=== PATIENT | male | born 1940 | race Caucasian/White ===

== ENCOUNTER → 2017-06-10 | Outpatient (CLI) | payer MEDICARE, OTHER ==
[~2017-06-10] MED LIST: AMLO-147 PO; CHOL400T10 PO; FERR220S15 PO; FLUO40CA PO; GEMF600T60 PO; LISI40TA9 PO
--- NOTE | 2017-06-10 16:54 | RADRPT ---
PROCEDURE: Left knee radiographs. CLINICAL INDICATION: Left knee pain. Postop. TECHNIQUE: Three views. Weight bearing. Frontal, lateral, and patellar view. COMPARISON: 07/15/2015. FINDINGS: There is no fracture or dislocation. The soft tissues are normal. There is a total left knee constrained arthroplasty which appears satisfactory. There is no lytic or blastic lesion. There is a joint effusion. IMPRESSION: 1. Joint effusion. 2. Otherwise unremarkable postoperative appearance of the left knee. RPTAT: QQ .Audi Deleon MD, MD Date Time Electronically viewed and signed by .Audi Deleon MD, MD on 06/10/2017 16:54 .R/
== END | disposition home or self-care (01) ==
LOC: HKI 14:12
PROVIDERS: ATTEND Orthopaedic Surgery
DX: M25.562 Pain in left knee (principal); M25.462 Effusion, left knee; Z96.652 Presence of left artificial knee joint
CPT/HCPCS: G0463

== ENCOUNTER 2017-06-13 08:25 | Inpatient (IN) | payer MEDICARE, OTHER ==
[2017-06-13] VITALS (22 sets, daily range): BP systolic 120–145; BP diastolic 55–65; PULSE 81–88; RESP 11–18; TEMP 98.9; Ht 167.6 cm; Wt 82.0 kg
[~2017-06-13] VITALS: Ht 167.6 cm; Wt 82.0 kg
[~2017-06-13 08:25] MED LIST changes: +ETOMIDATE 20 MG INJ ONE; +PROPOFOL 1000 MG INJ ONE
[2017-06-13] MEDS ORDERED: CEFEPIME 2GM/50 ML (PMX) 50 ML IVPB STA (08:45)
[2017-06-13] MEDS ORDERED: SODIUM CHLORIDE 0.9% 1L BAG IV* STA (08:45)
[2017-06-13] MEDS ORDERED: VANCOMYCIN 1 GM (PMX) 250 ML IVPB ONE (09:00)
[2017-06-13 09:24] LABS: ADD SCAN DIFF NO
[2017-06-13] MEDS ORDERED: morphine 4 MG/ML VIAL IV STA (09:28)
[2017-06-13] MEDS ORDERED: ONDANSETRON 4 MG INJ IV STA (09:28)
[2017-06-13 09:41] LABS: BASOPHILS % 0.1 % (0.0-2.0); EOSINOPHILS # 0.2 10^3/ul (0.0-0.5); EOSINOPHILS % 1.4 % (0.0-7.0); HEMATOCRIT 38.3 % (42.0-52.0); HEMOGLOBIN 12.5 g/dl (14.0-18.0); LYMPHOCYTES # 0.8 10^3/ul (0.8-2.9); MEAN CORPUSCULAR HEMOGLOBIN 29.6 pg (29.0-33.0); MEAN CORPUSCULAR HGB CONC 32.6 g/dl (32.0-37.0); MEAN CORPUSCULAR VOLUME 90.5 fl (82.0-101.0); MEAN PLATELET VOLUME 11.1 fl (7.4-10.4); MONOCYTE # 1.5 10^3/ul (0.3-0.9); MONOCYTES % 13.5 % (0.0-11.0); NEUTROPHIL # 8.6 10^3/ul (1.6-7.5); NEUTROPHILS % 77.2 % (39.0-77.0); PLATELET COUNT 280 10^3/UL (140-415); RED BLOOD COUNT 4.23 10^6/ul (4.70-6.10); RED CELL DISTRIBUTION WIDTH 13.2 % (11.5-14.5); WHITE BLOOD COUNT 11.1 10^3/ul (4.8-10.8)
[2017-06-13 09:47] LABS: INR 1.03; PARTIAL THROMBOPLASTIN TIME 23.9 Sec (25.0-35.0); PROTIME 13.5 Sec (12.2-14.2); PT RATIO 1.1
[2017-06-13 09:52] LABS: ALBUMIN 4.7 g/dl (3.3-4.9); ALBUMIN/GLOBULIN RATIO 1.42; BILIRUBIN,INDIRECT 0.5 mg/dl (0-1.1); BILIRUBIN,TOTAL 0.5 mg/dl (0.2-1.3); CALCIUM 9.7 mg/dl (8.4-10.2); CREATININE 1.54 mg/dl (0.61-1.24)
--- NOTE | 2017-06-13 09:55 | HP ---
Date/Time of Note Date/Time of Note DATE: 06/13/17 TIME: 09:44 Assessment/Plan VTE Prophylaxis VTE Prophylaxis Intervention: SCD's VTE Contraindication Reason: sx procedure on lower extremity VTE Confirmed-Overlap Tx Rcvd Reason for no Overlap Therapy: Contraindicated VTE Overlap Tx Contraindicated: sx procedure on lower extremity Assessment/Plan Assessment/Plan The patient has an infected left total knee arthroplasty. The symptoms have been going on for the last 3-4 days. He had previously told me in the clinic that he was having some pain for last few months but his symptoms of acute pain and swelling have started only 3-4 days ago. The organism is a Staphylococcus aureus but the sensitivities still pending. I am putting him on the operative schedule for this afternoon for surgical intervention. I am hopeful to have the sensitivities of the organism prior to that. If the organism is a sensitive Staphylococcus aureus then I think it is reasonable to attempt a irrigation and debridement with polyethylene liner exchange and retention of the components and placement of antibiotic beads. However, if the organism is a methicillin-resistant staph aureus, then he will need removal of the components and placement of antibiotic impregnated cement spacer with interval IV antibiotics and a second stage reimplantation at a later date. I had a lengthy discussion with the patient about the 2 surgical options. He obviously would like to avoid taking everything out especially given that there are cemented stems up the femur down the tibia which would require an extensive resection and may lead to significant bone loss and if he has to have a antibiotic spacer will mean he is touchdown weightbearing and limited in his ambulatory function and unable to take care of his was sick. For now we will make him n.p.o. He will be hydrated with intravenous fluids and was started on vancomycin and cefepime. He will be given adequate pain medication. I have asked Dr. Stein off of medicine to see the patient for preoperative clearance. We will also have Dr. Balwinder eknny of infectious disease see the patient for ID consultation. We will check preoperative labs including a CBC, can panel, PT PTT, ESR, CRP, chest x-ray, EKG, and urine analysis. Once he is cleared medically we will plan to proceed with surgery later today. I have explained the risks of both procedures to the patient. Explained the risks to include but not be limited to: Bleeding and possible need for blood transfusion, infection (residual/recurrent and possible inability to eradicate the infection and need for above-knee amputation), pain, stiffness, neurovascular injury with possible numbness, weakness, and/or paralysis anywhere from the knee down to the toes, fracture, instability, dislocation, wear and/or loosening of the prosthesis and need for a revision at a later date , wound healing problems, blood clots, pulmonary embolism, and anesthetic complications such as heart attack, stroke, GI bleed, pneumonia, and/or . Ample time was allowed for the patient to ask questions all of which were addressed and answered. He understands and wishes to proceed. Informed consent was given and we will plan to surgery later today. HPI/ROS Admit Date/Time Admit Date/Time Hx of Present Illness The patient is a 77-year-old gentleman well-known to me who underwent a left total knee arthroplasty about 3 years ago. He has done quite well since the surgery. However starting earlier this week he noted increasing pain and swelling in the knee. He came to my office 3 days ago. I aspirated the knee and obtained approximately 90 cc of cloudy fluid. We sent this off to the laboratory. This has come back consistent with an infectious etiology. I called him last night and suggested he come to the emergency room last night but he had to wait till this morning because of logistics of transportation. He is here today complaining of persistent pain in the knee. He had a low- grade temperature at home but did not take his temperature. He denies any recent dental work. In the past he has had dental work and has taken prophylactic antibiotics. He has had no tooth abscesses or infections elsewhere. He denies any hip or groin pain or pain in other joints. PMH/Family/Social Past Medical History 1. History of atrial fibrillation 2. Elevated cholesterol 3. Hypertension Past Surgical History 1. Left total knee replacement Family History Significant Family History: other Social History Alcohol Use: none Smoking Status: Former smoker Exam/Review of Systems Vital Signs Vitals Vital Signs Date Time Temp Pulse Resp B/P Pulse Ox O2 Delivery O2 Flow Rate FiO2 06/13/17 08:27 100.4 75 20 139/63 98 Exam Exam The patient is lying on the hospital very comfortable. His left knee has a well -healed midline scar. There is a moderate effusion. The knee is warm to the touch. There is pain with attempted passive range of motion. There is no varus or valgus instability. Both hips are supple no pain passive range of motion. The right knee has no effusion warmth or erythema and has no pain on passive range of motion. Motor strength is 5 out of 5 in the bilateral quadriceps, tibialis anterior,, gastrocsoleus, and peroneals. Sensation is intact to light touch of the bilateral lower extremities. He has palpable dorsalis pedis and posterior tibial pulses with capillary refill less than 2 seconds in all 5 digits. There is no distal edema. X-rays done the other day in my office so that the left total knee arthroplasty is well aligned and well fixed. The stems are cemented in the femur and tibia with no obvious loosening. There are no fractures or bony lesions or areas of subluxations. Laboratories: Blood work drawn on 06/10/17reveals a white blood cell count of 15.0, ESR 6, CRP 10.03 The fluid aspirated from his left knee on 06/10/2017 reveals 36,000 white blood cells with 82% neutrophils. No crystals were seen. The Gram stain shows many white blood cells but no organisms seen. The culture is showing scant growth of Staphylococcus aureus. The sensitivities are still pending. Medications Medications Current Medications Vancomycin HCl (Vancocin) 250 ml @ 125 mls/hr ONCE ONCE IVPB ; Start 06/13/17 at 09:00; Stop 06/13/17 at 10:59 MIR MCNAMARA MD Jun 13, 2017 09:55
[2017-06-13] MEDS ORDERED: ONDANSETRON 4 MG INJ IV PRN ×3 (10:00→20:30)
[2017-06-13] MEDS ORDERED: ACETAMINOPHEN 325 MG TAB PO PRN ×2 (10:00→12:00)
[2017-06-13 10:01] LABS: TROPONIN-I 0.017 ng/ml (0.00-0.12)
[2017-06-13 10:05] LABS: C-REACTIVE PROTEIN 25.1 mg/dl (0.0-0.9)
--- NOTE | 2017-06-13 10:06 | ERA ---
ER Documentation Chief Complaint Date/Time DATE: 06/13/17 TIME: 10:05 Chief Complaint Complains of left knee pain S/P knee infection HPI Patient is a 77-year-old male with hypertension who presents with a left knee infection. He said that on Saturday night he started with left knee swelling and he saw Dr. Dewey on Saturday. He can draw fluid and called the patient today saying that it was an infection and that he would need to go to the hospital for admission and surgery. He does have a fever in the emergency department. The patient had a left knee replacement done by Dr. Dewey 3 years ago. ROS All systems reviewed and are negative except as per history of present illness. Medications Home Meds Reported Medications Ferrous Sulfate (Ferrous Sulfate) 220 Mg/5 Ml Solution, 220 MG PO DAILY, ML 07/27/14 Cholecalciferol* (Vitamin D*) 400 Unit Tablet, 1000 UNIT PO DAILY, TAB 07/27/14 Gemfibrozil* (Gemfibrozil*) 600 Mg Tablet, 600 MG PO BID, TAB 07/26/14 Fluoxetine Hcl* (Fluoxetine Hcl*) 40 Mg Capsule, 30 MG PO DAILY, CAP 07/26/14 Amlodipine Besylate* (Amlodipine Besylate*) 10 Mg Tablet, 7.5 MG PO BID WITH MEALS, TAB 07/26/14 Lisinopril* (Lisinopril*) 40 Mg Tablet, 40 MG PO DAILY, TAB 07/26/14 Allergies Allergies: Coded Allergies: gabapentin (Verified Allergy, Unknown, swelling, 06/13/17) metoprolol (Verified Allergy, Unknown, lethargy, 06/13/17) warfarin (Verified Allergy, Unknown, getting too weak, 06/13/17) PMhx/Soc History of Surgery: Yes ( LEFT KNEE REPLACEMENT 2013) Anesthesia Reaction: No Hx Neurological Disorder: No Hx Respiratory Disorders: No Hx Cardiac Disorders: Yes (HTN; AFIB) Hx Psychiatric Problems: No Hx Miscellaneous Medical Probl: Yes Hx Alcohol Use: Yes Hx Substance Use: No Hx Tobacco Use: No Smoking Status: Former smoker FmHx Family History: No diabetes Physical Exam Vitals Vital Signs Date Time Temp Pulse Resp B/P Pulse Ox O2 Delivery O2 Flow Rate FiO2 06/13/17 10:06 99.1 75 18 156/67 96 Room Air 06/13/17 08:27 100.4 75 20 139/63 98 Physical Exam Const: No acute distress Head: Atraumatic Eyes: Normal Conjunctiva ENT: Normal External Ears, Nose and Mouth. Neck: Full range of motion..~ No meningismus. Resp: Clear to auscultation bilaterally Cardio: Regular rate and rhythm, no murmurs Abd: Soft, non tender, non distended. Normal bowel sounds Skin: No petechiae or rashes Back: No midline or flank tenderness Ext: Significant left-sided knee swelling with effusion, warm to touch Neur: Awake and alert Psych: Normal Mood and Affect Result Diagram: 06/13/17 0900 06/13/17 0900 Results 24 hrs Laboratory Tests Test 06/13/17 09:00 White Blood Count 11.110^3/ul Red Blood Count 4.2310^6/ul Hemoglobin 12.5g/dl Hematocrit 38.3% Mean Corpuscular Volume 90.5fl Mean Corpuscular Hemoglobin 29.6pg Mean Corpuscular Hemoglobin Concent 32.6g/dl Red Cell Distribution Width 13.2% Platelet Count 90905^3/UL Mean Platelet Volume 11.1fl Neutrophils % 77.2% Lymphocytes % 7.0% Monocytes % 13.5% Eosinophils % 1.4% Basophils % 0.1% Nucleated Red Blood Cells % 0.0/100WBC Neutrophils # 8.610^3/ul Lymphocytes # 0.810^3/ul Monocytes # 1.510^3/ul Eosinophils # 0.210^3/ul Basophils # 0.010^3/ul Nucleated Red Blood Cells # 0.010^3/ul Prothrombin Time 13.5Sec Prothrombin Time Ratio 1.1 INR International Normalized Ratio 1.03 Activated Partial Thromboplast Time 23.9Sec Sodium Level 131mmol/L Potassium Level 4.0mmol/L Chloride Level 98mmol/L Carbon Dioxide Level 23mmol/L Anion Gap 14 Blood Urea Nitrogen 21mg/dl Creatinine 1.54mg/dl Glucose Level 104mg/dl Lactic Acid Level 0.9mmol/L Calcium Level 9.7mg/dl Total Bilirubin 0.5mg/dl Direct Bilirubin 0.00mg/dl Indirect Bilirubin 0.5mg/dl Aspartate Amino Transf (AST/SGOT) 43IU/L Alanine Aminotransferase (ALT/SGPT) 48IU/L Alkaline Phosphatase 69IU/L Troponin I 0.017ng/ml C-Reactive Protein 25.1mg/dl Total Protein 8.0g/dl Albumin 4.7g/dl Globulin 3.30g/dl Albumin/Globulin Ratio 1.42 Current Medications Medications (Trade) Dose Ordered Sig/Dione Route PRN Reason Start Time Stop Time Status Last Admin Dose Admin Sodium Chloride 2540 ml 2,540 ml BOLUS OVER 2 HOURS STAT IV* 06/13/17 08:45 06/13/17 08:47 DC 06/13/17 09:50 Cefepime HCl 50 ml @ 100 mls/hr ONCE STAT IVPB 06/13/17 08:45 06/13/17 09:14 DC 06/13/17 09:51 Vancomycin HCl (Vancocin) 250 ml @ 125 mls/hr ONCE ONCE IVPB 06/13/17 09:00 06/13/17 10:59 Morphine Sulfate (morphine) 4 mg ONCE STAT IV 06/13/17 09:28 06/13/17 09:30 DC 06/13/17 09:44 Ondansetron HCl (Zofran Inj) 4 mg ONCE STAT IV 06/13/17 09:28 06/13/17 09:30 DC 06/13/17 09:43 Ondansetron HCl (Zofran Inj) 4 mg BRIDGE ORDER PRN IV NAUSEA AND/OR VOMITING 06/13/17 10:00 06/14/17 09:59 Acetaminophen (Tylenol Tab) 650 mg ER BRIDGE PRN PO MILD PAIN/FEVER 06/13/17 10:00 06/14/17 09:59 Procedures/MDM Chest x-ray pending at this time. EKG read by me: Rate/Rhythm: Regular rate and rhythm at a normal rate Intervals: Normal Impression: No evidence of ischemia or arrhythmia Patient is a 77-year-old male presents with acute left-sided joint infection. The patient has a septic joint in the left knee. The patient will need to go to the operating room for washout and revision surgery. Dr. Dewey will be taken the patient to the operating room today. The patient was given broad- spectrum antibiotics with vancomycin and cefepime. Laboratory studies show an elevated white blood cell count. At this point I doubt sepsis. The patient will be admitted to the care of Dr. Flores who is seen him in the past in 2013. The patient will be admitted to a medical surgical bed. Departure Diagnosis: Primary Impression: Septic joint Qualified Code: M00.9 - Pyogenic arthritis of left knee joint, due to unspecified organism Additional Impression: Knee pain Qualified Code: M25.562 - Acute pain of left knee Condition: KERA Dennison MD Jun 13, 2017 10:06
[2017-06-13] MEDS ORDERED: SAW450CA2 PO (10:36)
[2017-06-13] MEDS ORDERED: FENO145T19 PO (10:36)
[2017-06-13] MEDS ORDERED: CHOL100062 PO (10:37)
[2017-06-13] MEDS ORDERED: TEST1.25 TD (10:38)
[2017-06-13] MEDS ORDERED: HYDROmorphONE 1 MG/ML SYG IV STA (11:34)
--- NOTE | 2017-06-13 11:34 | RADRPT ---
PROCEDURE: XR Chest. CLINICAL INDICATION: Possible sepsis TECHNIQUE: An AP view of the chest was obtained. COMPARISON: Chest x-ray dated FINDINGS: There is prominence of the interstitial markings. No pleural effusion or pneumothorax is seen. Th e cardiomediastinal silhouette is mildly enlarged . Calcifications are seen within the aortic arch. The osseous structures demonstrate senescent changes. IMPRESSION: 1. Mild prominence of the interstitial markings, may reflect mild underlying interstitial edema or chronic lung changes. Findings are increased when compared to the prior examination. 2. Mild cardiomegaly and aortic atherosclerosis. RPTAT: HH .Kandi Mayberry MD, MD Date Time Electronically viewed and signed by .Kandi Mayberry MD, on 06/13/2017 11:33 .G/
[2017-06-13] MEDS: traMADol 50 MG TAB PO SCH ×3 (12:00→23:39)
[2017-06-13] MEDS ORDERED: ONDANSETRON 4 MG TAB PO PRN (12:00)
[2017-06-13] MEDS ORDERED: DOCUSATE SODIUM 100 MG CAP PO PRN (12:00)
[2017-06-13] MEDS ORDERED: NACL 0.9% 3 ML SYG IV SCH ×2 (12:00→20:30)
[2017-06-13] MEDS ORDERED: HYDROCODONE/APAP (5/325) TAB PO PRN (12:00)
[2017-06-13] MEDS ORDERED: DEXTROSE 5%-0.9% NACL 1,000 ML IV SCH (12:00)
[2017-06-13] MEDS ORDERED: morphine 2 MG INJ IV PRN (12:00)
[2017-06-13] MEDS ORDERED: ZOLPIDEM 5 MG TAB PO PRN (12:00)
--- NOTE | 2017-06-13 12:10 | HP ---
Date/Time of Note Date/Time of Note DATE: 06/13/17 TIME: 12:03 Assessment/Plan VTE Prophylaxis VTE Prophylaxis Intervention: SCD's Assessment/Plan Assessment/Plan 1. Septic left knee, surgery is planned today, abx started, id to see 2. Mild renal insuff, baseline Scr 1.22, rajesh stopped, iv started, pamela ordered 3. HBP, meds continued 4. Elev tri and chol, meds resumed 5. NIVVS ordered HPI/ROS Admit Date/Time Admit Date/Time 7 Hx of Present Illness Admitted with 5 d hx of swelling of left knee having had prior knee replacement 07/15 with sense of low grade temp. No recent dental work and no trauma. 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 alcohol Alcohol Use: none Smoking Status: Former smoker Exam/Review of Systems Vital Signs Vitals Vital Signs Date Time Temp Pulse Resp B/P Pulse Ox O2 Delivery O2 Flow Rate FiO2 06/13/17 11:55 98.4 75 18 140/64 97 Room Air Exam Neck: No jvd Respiratory: clear to auscultation Cardiovascular: regular rate and rhythm Gastrointestinal: soft Musculoskeletal: joint tenderness (left knee is swollen and sl tender) Extremities: No edema (and no calf tend) Labs Result Diagram: 06/13/17 0900 06/13/17 0900 Medications Medications Current Medications Cholecalciferol (Vitamin D) 2,000 unit DAILY PO ; Start 06/14/17 at 09:00; Status UNV Fenofibrate (Tricor) 145 mg DAILY PO ; Start 06/14/17 at 09:00; Status UNV Fluoxetine HCl (Prozac) 30 mg DAILY PO ; Start 06/14/17 at 09:00; Status UNV KADEN ORDOÑEZ MD Jun 13, 2017 12:10
--- NOTE | 2017-06-13 13:19 | RADRPT ---
PROCEDURE: US venous lower extremities bilaterally. CLINICAL INDICATION: Lower extremity pain. TECHNIQUE: Multiple longitudinal and transverse images of the bilateral lower extremity veins were obtained with vargas scale and color Doppler imaging. 2D grayscale imaging with compression, color D oppler flow, and augmentation was performed. The calf veins were interrogated as well. COMPARISON: None available. FINDINGS: The common femoral, superficial femoral, and popliteal veins are compressible bilaterally. There is normal color Doppler flow within the vessels. Normal waveforms are visualized and there is normal response to augmentation. The calf veins are visualized and are equally unremarkable. IMPRESSION: 1. No evidence of deep vein thrombosis in the lower extremities bilaterally. RPTAT: GG .Raghavendra Arevalo MD, MD Date Time Electronically viewed and signed by .Raghavendra Arevalo MD, MD on 06/13/2017 13:18 .P/
[2017-06-13] MEDS ORDERED: BACITRACIN 50000 UNITS INJ ONE (14:40)
[2017-06-13] MEDS ORDERED: SODIUM HYPOCHLORITE 0.125% 473 ML BTL IRR ONE ×2 (15:00→15:30)
[2017-06-13] MEDS ORDERED: VANCOMYCIN 1 GM INJ ONE ×5 (15:11→19:14)
[2017-06-13] MEDS ORDERED: POLYMYXIN B 500000 UNIT INJ ONE (15:11)
[2017-06-13] MEDS ORDERED: TOBRAMYCIN 1.2 GM POWDER ONE ×2 (15:11→16:10)
[2017-06-13] MEDS ORDERED: MINERAL OIL LIGHT 10 ML VIAL ONE ×2 (15:12→19:10)
[2017-06-13] MEDS ORDERED: METHYLENE BLUE 1% 10 ML INJ ONE ×2 (15:13→19:02)
[2017-06-13] MEDS ORDERED: EXPAREL NOTE (BUPIVICAINE LIPOSOMAL) XX SCH (15:30)
[2017-06-13] MEDS ORDERED: CELECOXIB 400 MG PO X1 DOSE PO ONE (15:30)
[2017-06-13] MEDS ORDERED: ONDANSETRON 4 MG IV X 1 DOSE IV ONE (15:30)
[2017-06-13] MEDS ORDERED: VANCOMYCIN 1 GM/NS 250 ML X1 BEFORE INCISION IVPB ONE (15:30)
[2017-06-13] MEDS ORDERED: LACTATED RINGER'S 1,000 ML IV SCH (15:30)
[2017-06-13] MEDS ORDERED: traMADOL 50 MG TAB X 1 DOSE PO ONE (15:30)
[2017-06-13] MEDS ORDERED: TRANEXAMIC ACID 820 MG in SOD CHLORIDE 0.9% 100 ML IVPB ONE ×7 (15:30→23:30)
[2017-06-13] MEDS ORDERED: BUPIVACAINE LIPOSOME/PF 266 MG/20 ML VIAL INFIL ONE (15:30)
[2017-06-13] MEDS ORDERED: TRANEXAMIC ACID 820 MG in SOD CHLORIDE 0.9% 91.8 ML IV ONE (15:30)
[2017-06-13] MEDS ORDERED: PAIN COCKTAIL - VANCOMYCIN IRR ONE ×7 (15:30)
[2017-06-13] MEDS ORDERED: oxyCODONE (CR) 10 MG TAB [oxyCONTIN] X1 DOSE PO ONE (15:30)
[2017-06-13] MEDS ORDERED: CEFAZOLIN 2 GM/50 ML (PMX) 50 ML IVPB ONE (15:30)
[2017-06-13] MEDS ORDERED: NEOSTIGMINE 3 MG/3 ML SYRINGE ONE (15:39)
[2017-06-13] MEDS ORDERED: FENTAnyl 50 MCG/ML VIAL ONE ×2 (15:39→18:27)
[2017-06-13] MEDS ORDERED: CEFAZOLIN 1 GM INJ ONE (15:39)
[2017-06-13] MEDS ORDERED: PROPOFOL 20 ML ONE (15:39)
[2017-06-13] MEDS ORDERED: GLYCOPYRROLATE 0.4 MG INJ ONE (15:39)
[2017-06-13] MEDS ORDERED: ONDANSETRON 4 MG INJ ONE (15:39)
[2017-06-13] MEDS ORDERED: DEXAMETHASONE 4 MG/ML 1 ML INJ ONE (15:39)
[2017-06-13] MEDS ORDERED: ROCURONIUM 50 MG INJ ONE (15:39)
[2017-06-13] MEDS ORDERED: MIDAZOLAM 1 MG/ML 2 ML INJ ONE (15:39)
[2017-06-13] MEDS ORDERED: MEPERIDINE 25 MG INJ IV PRN (17:00)
[2017-06-13] MEDS ORDERED: DIPHENHYDRAMINE 50 MG INJ IV PRN (17:00)
[2017-06-13] MEDS ORDERED: FENTAnyl 50 MCG/ML VIAL IV PRN ×3 (17:00)
[2017-06-13] MEDS ORDERED: MIDAZOLAM 1 MG/ML 2 ML INJ IV PRN (17:00)
[2017-06-13] MEDS ORDERED: hydrALAzine 20 MG INJ IV PRN (17:00)
[2017-06-13] MEDS ORDERED: HYDROmorphONE (0.2 MG/ML) 10ML SYG IV PRN ×3 (17:00)
[2017-06-13] MEDS ORDERED: OXYCODONE/ACETAMINOPHEN (5/325) TAB PO PRN ×2 (17:00)
[2017-06-13] MEDS ORDERED: TRIMETHOBENZAMIDE 100 MG/ML VIAL IM PRN (17:00)
[2017-06-13] MEDS ORDERED: EPHEDrine SULFATE 50 MG/5 ML SYG IV PRN (17:00)
[2017-06-13] MEDS ORDERED: VANCOMYCIN 1 GM INJ IRR ONE (19:39)
[2017-06-13] MEDS ORDERED: TOBRAMYCIN 1.2 GM POWDER ZFS ONE (19:41)
[2017-06-13] MEDS ORDERED: FUROSEMIDE 20 MG INJ ONE (19:42)
[2017-06-13] MEDS: LACTATED RINGER'S 1,000 ML IV SCH ×2 (20:30→22:31)
[2017-06-13] MEDS ORDERED: NA PHOSPHATE/BIPHOS 133 ML ENEMA PR PRN (20:30)
[2017-06-13] MEDS ORDERED: DIPHENHYDRAMINE 25 MG CAP PO PRN (20:30)
[2017-06-13] MEDS ORDERED: HYDROCODONE/APAP (7.5/325) TAB PO PRN (20:30)
[2017-06-13] MEDS ORDERED: MAGNESIUM HYDROXIDE 30ML CUP PO PRN (20:30)
[2017-06-13] MEDS ORDERED: BISACODYL 10 MG SUPP PR PRN (20:30)
[2017-06-13] MEDS ORDERED: HYDROmorphONE 1 MG/ML SYG IV PRN (20:30)
[2017-06-13] MEDS ORDERED: ASPIRIN (EC) 325 MG TAB PO ONE ×2 (20:30→21:00)
--- NOTE | 2017-06-13 20:40 | PN ---
Date/Time of Note Date/Time of Note DATE: 06/13/17 TIME: 20:36 Assessment/Plan Assessment/Plan Assessment/Plan Stable in PACU, s/p I&D left knee, removal of infected TKA, implantation of abx spacer -continue Vancomycin. Dr. Moon to consult and see patient tomorrow -pain meds as needed -ASA/SCDs -OOB with PT - TDWB -check AM labs -monitor drain -d/c moore in AM XR of the left knee is pending at this time Subjective 24 Hr Interval Summary Stable in PACU. Denies pain. Moving all extremities. Exam/Review of Systems Vital Signs Vitals Vital Signs Date Time Temp Pulse Resp B/P Pulse Ox O2 Delivery O2 Flow Rate FiO2 06/13/17 14:50 98.9 76 18 141/67 95 Room Air Exam Free Text/Dictation Hemovac: minimal Dressing dry Incision clean, dry, and intact without redness or drainage Thigh soft 5/5 Quadriceps, Tibialis Anterior, EHL, Gastroc, Soleus, Peroneals Normal sensation Palpable DT/PT, CR <2 sec No distal edema Results Result Diagram: 06/13/17 0900 06/13/17 09 JOSE D SMALL PA-C Jun 13, 2017 20:40
--- NOTE | 2017-06-13 20:45 | OPR ---
Date/Time of Note Date/Time of Note DATE: 06/13/17 TIME: 20:33 Operative Report Procedure Description DATE: 06/13/2017 PREOPERATIVE DIAGNOSIS: Infected left total knee arthroplasty POSTOPERATIVE DIAGNOSIS: Infected left total knee arthroplasty OPERATION PERFORMED: I&D of left knee, removal of infected left knee replacement , placement of antibiotic cement spacer SURGEON: Mir Mcnamara MD PREPARATION PLANT REPAIRER: Ihsan Ley PA-C COMPONENTS USED: DePuy size 4 PFC femur with a 5 neutral bolt and a 90 mm stem , 17.5 mm all polyethylene tibia ANESTHESIA: Spinal plus general endotracheal intubation, plus femoral nerve catheter. ANESTHESIOLOGIST: Mp Campos M.D. TOURNIQUET TIME: 120 minutes. ESTIMATED BLOOD LOSS: 300 cc INTRAVENOUS FLUIDS: 4500 cc crystalloid SPECIMENS: Aerobic and anaerobic cultures of synovial fluid and synovial tissue for culture DRAINS: Hemovac x 2 COMPLICATIONS: None. DISPOSITION: The patient tolerated the procedure well and was taken to the recovery room in stable condition. INDICATIONS: The patient is a 77-year-old gentleman who underwent a left total knee arthroplasty 3 years ago and has done quite well. He came in to the office a few days ago with acute onset of pain and swelling in the left knee. I aspirated the knee and this showed 36,000 white blood cells with growth of Staphylococcus aureus. I felt the patient would benefit from removal of the implant and placement of antibiotic impregnated cement spacer with interval IV antibiotics and then have him come back at a later date for reimplantation for second stage procedure. The risks, benefits, and alternatives of the procedure were explained in detail to the patient. I explained the risks of the surgery to include but not be limited to, bleeding and possible need for blood transfusion; infection ( possible inability to eradicate the infection and need for future above-knee amputation); pain; stiffness; neurovascular injury with possible numbness, weakness, and/or paralysis anywhere from the knee down to the toes; fracture; instability; dislocation; wear and/or loosening of the prosthesis and possible need for future revision; blood clots; pulmonary embolism; and anesthetic complications such as heart attack, stroke, GI bleed, pneumonia, and/or . Ample time was allowed for the patient to ask questions, all of which were addressed and answered. The patient understood the risks involved and wished to proceed. Informed consent was signed prior to the procedure. PROCEDURE: The patient's left knee was initialed with a marking pen in the preoperative area to identify the correct operative site. The patient was brought to the operating room and transferred from the [facility] to the operating table where a spinal anesthetic was administered. The patient was then anesthetized and intubated. A Sadler catheter was placed. A timeout was performed to confirm that the left leg was the correct operative site. The patient had already been given vancomycin and cefepime earlier this morning in the emergency room. A tourniquet was placed on the operative proximal thigh. The operative knee and lower extremity were prepped and draped in the usual sterile fashion. The operative lower extremity was elevated and exsanguinated with an Esmarch tourniquet. The proximal thigh tourniquet was inflated to 300 mmHg. The knee was flexed. The previous midline incision was incised. This was carried down through subcutaneous tissue and fat with sharp dissection. Limited medial and lateral flaps were raised. The previous medial parapatellar arthrotomy was incised. This was carried down subcutaneous tissue and fat with sharp dissection. There was quite a bit of purulent synovial fluid encountered which was swabbed for aerobic and anaerobic culture 2. A synovectomy was performed. The synovial tissue was sent for culture as well. At this point the tibia was subluxed anteriorly and the polyethylene liner removed. The Biomet Ultra-Drive was used to disrupt the cement bone interface on the femur. Osteotomes were then used to free up any remaining cement bone interface and the femur was able to be impacted out of the femur with the stem coming out with no cement on it. The cement in the femoral canal was removed with a combination of osteotomes and the Biomet Ultra-Drive. Attention was then turned towards the tibia which was removed in a similar fashion using the Biomet Ultra-Drive and then osteotomes. The tibial component was impacted up out of the tibia. There was a small avulsion of the medial tibia but the majority of the tibia was intact. Remove the remaining cement with a combination of osteotomes and the Biomet Ultra-Drive. The patellar component was removed with the Biomet Ultra-Drive as well. At this point the knee was irrigated with 3 L of antibiotic saline, a one-to- one mixture of Betadine and saline, quarter strength Dakin's solution, and then 3 L of antibiotic saline. Drapes were replaced and gloves were changed. At this point I trialed and felt that the patient would benefit from a 17.5 thickness polyethylene liner and size 4 PFC femur. I wanted to use a mobile antibiotic spacer to use a stem on the femur to bypass the defect that was there from the previous surgery. At this point antibiotic cement was mixed with each bag of cement containing 3 g of vancomycin and 1.2 g of tobramycin with methylene blue mixed in. A Steinmann pin was placed through the all polyethylene tibia and coated with cement and this was cemented into place. The femoral component was then cemented into place as well the knee was held in full extension all excess cement was removed with curettes. This was held in place until the cement was completely hardened. C-arm imaging showed the spacer to be well aligned on AP and lateral views. The knee came to full extension as evidenced by the fact that with the foot on my abdomen and axial loading there was no tendency for the knee to flex. The knee was able to flex to 120 with no varus or valgus instability. The patella tracked well with no tilt or subluxation. The tourniquet was let down there was good hemostasis. The knee was irrigated with antibiotic saline. Stimulan beads were mixed with vancomycin and tobramycin placed in the knee joint. A Hemovac drain was placed in the deep portion of the knee and brought out the anterolateral thigh. The arthrotomy was then closed with a running #2 Stratafix suture. The subcutaneous layer was closed over a second drain with a running 2-0 Stratafix suture. The subcutaneous layer was then closed with 3-0 Vicryl and the skin closed with sebastian. The drains were secured with 3-0 nylon's. Sponge and needle counts were correct. Incision was covered with a silver Mepilex dressing and wrapped with sterile cast padding and a bias dressing. The patient was awakened and extubated and taken to the recovery room in stable condition MIR MCNAMARA MD Jun 13, 2017 20:44
[2017-06-13 20:50] LABS: HEMOGLOBIN 9.7 g/dl (14.0-18.0)
[2017-06-13] MEDS ORDERED: DOCUSATE SODIUM 100 MG CAP PO ONE (21:24)
[2017-06-13] MEDS ORDERED: VANCOMYCIN 1 GM (PMX) 250 ML ONE (21:24)
[2017-06-13] MEDS: VANCOMYCIN 1 GM (PMX) 250 ML IVPB SCH (21:27)
[2017-06-13] MEDS: DOCUSATE SODIUM 100 MG CAP PO SCH (21:28)
--- NOTE | 2017-06-13 21:48 | RADRPT ---
PROCEDURE: XR Knee. CLINICAL INDICATION: Postoperative evaluation TECHNIQUE: AP and cross-table lateral views of the left knee were obtained. COMPARISON: 06/10/2017 FINDINGS: Previously demonstrated metallic prosthetic component of the proximal tibia has been removed and rep laced with a solitary long screw that is in proper position the distal tip within the proximal tibia l diaphysis, the proximal tip projecting into the knee joint. The distal femoral metallic prostheti c component is unchanged. There are multiple new of radiopaque punctate densities about the distal femur and proximal tibia presumably antibiotic beads. Midline skin sebastian, drainage catheter and s ubcutaneous gas are consistent with recent postoperative changes. No joint effusion is seen and the soft tissues are unremarkable. RPTAT:HJJR IMPRESSION: 1. Interval revision of the tibial component for the prosthesis of the left knee with removal of the previously seen tibial hardware and placement of a solitary screw from the left knee joint into the proximal tibial diaphysis. 2. Placement of multiple radiopaque beads presumably antibiotic laden. 3. Distal femoral metallic prosthetic component of the arthroplasty is similar to the preoperative exam and in satisfactory position. 4. Postoperative gas, skin sebastian and drainage catheter consistent with recent surgery. Physician Soha Date Time Electronically viewed and signed by Physician Soha on 06/13/2017 21:47 /
--- NOTE | 2017-06-13 21:53 | RADRPT ---
PROCEDURE: Intraoperative imaging of the left knee with fluoroscopy. CLINICAL INDICATION: Left knee pain. Intraoperative. TECHNIQUE: 20 images of the left knee were obtained in the operating room with an image intensifie r. No radiologist was in attendance. Fluoroscopy time is 0.5 minutes. COMPARISON: Left knee radiographs dated 06/10/2017. FINDINGS: Images demonstrate surgical instruments overlying the left knee. IMPRESSION: 1. Intraoperative imaging of the left knee. RPTAT: QQ .Audi Deleon MD, MD Date Time Electronically viewed and signed by .Audi Deleon MD, MD on 06/13/2017 21:53 .R/
[2017-06-13 23:28] LABS: CALCIUM 7.1 mg/dl (8.4-10.2); CREATININE 1.26 mg/dl (0.61-1.24); POTASSIUM 4.2 mmol/L (3.5-5.1)
[2017-06-13] MEDS: PREGABALIN 50 MG CAP PO SCH (23:39)
[2017-06-14 00:01] VITALS: BP 129/60; PULSE 82; RESP 17
[2017-06-14 01:00] VITALS: BP 133/61; PULSE 85; RESP 17
[2017-06-14] MEDS ORDERED: TRANEXAMIC ACID 820 MG in SOD CHLORIDE 0.9% 100 ML IVPB ONE (02:30)
[2017-06-14 05:00] VITALS: BP 126/60; PULSE 76; RESP 17
[2017-06-14 05:36] LABS: ADD SCAN DIFF NO
[2017-06-14 05:46] LABS: ABNORMAL IP MESSAGE 1; BASOPHILS % 0.1 % (0.0-2.0); HEMATOCRIT 26.7 % (42.0-52.0); HEMOGLOBIN 8.8 g/dl (14.0-18.0); LYMPHOCYTES # 0.3 10^3/ul (0.8-2.9); LYMPHOCYTES % 3.4 % (15.0-51.0); MEAN CORPUSCULAR HEMOGLOBIN 30.8 pg (29.0-33.0); MEAN CORPUSCULAR VOLUME 93.4 fl (82.0-101.0); MEAN PLATELET VOLUME 10.7 fl (7.4-10.4); MONOCYTE # 0.8 10^3/ul (0.3-0.9); MONOCYTES % 7.5 % (0.0-11.0); NEUTROPHIL # 8.9 10^3/ul (1.6-7.5); PLATELET COUNT 218 10^3/UL (140-415); RED BLOOD COUNT 2.86 10^6/ul (4.70-6.10); RED CELL DISTRIBUTION WIDTH 13.1 % (11.5-14.5); WHITE BLOOD COUNT 10.1 10^3/ul (4.8-10.8)
[2017-06-14 06:11] LABS: CALCIUM 7.4 mg/dl (8.4-10.2); CREATININE 1.17 mg/dl (0.61-1.24); MAGNESIUM 1.7 mg/dl (1.7-2.5); PHOSPHORUS 3.5 mg/dl (2.5-4.9); POTASSIUM 3.9 mmol/L (3.5-5.1)
[2017-06-14] MEDS: PANTOPRAZOLE (EC) 40 MG TAB PO SCH ×2 (06:16→17:54)
[2017-06-14] MEDS: traMADol 50 MG TAB PO SCH ×3 (06:16→17:54)
--- NOTE | 2017-06-14 06:58 | CONS ---
Date/Time of Note Date/Time of Note DATE: 06/14/17 TIME: 06:51 Assessment/Plan Assessment/Plan Chief Complaint/Hosp Course 1) L knee septic arthritis with hardware removed likely portal of entry was his foot where he has rough callouses and had developed a split to the heal after a lot of walking with sandals continue with vanco till sensi's of s.aureus is known anticipate 6 weeks of IV therapy pt will need a picc line will follow ESR, CRP weekly while on therapy, intial ones were noteably elevated 2) HTN 3) BPH 4) hyperlipidemia 5) low testosterone Problems: Consultation Date/Type/Reason Admit Date/Time 06/13/17 Date of Consultation: Jun 14, 2017 Type of Consultation: ID Hx of Present Illness pt had a L TKR 3 years ago late may pt went down to [place] to close up his property he wore sandals and got a painful crack in his heal that he soaked later in hot water He did not fall but he did "tweak" his knee when he almost fell while down there When he got home the knee was a bit painful but it started to get better, then 5 -6 days ago he developed a lot of pain to the L knee with some swelling he did not notice F, C, NS No SOB, cough, sore throat, ALEJANDRE, N, V, D no dysuria, rashes or open cuts on his legs Respiratory: No cough, No pain, No pleuritic pain, No shortness of breath Cardiovascular: No chest pain Gastrointestinal: no complaints Genitourinary: other (stream has been slow), No dysuria, No hematuria Skin: no complaints Neurologic: no complaints Past Medical History Medical History: other (Atrial fibrill having had prior cardioversion 03/15 without rec, Hyperlipidemia, HBP, prostatism and low T) Past Surgical History L TKR Social History Alcohol Use: none Smoking Status: Former smoker Exam/Review of Systems Vital Signs Vitals Vital Signs Date Time Temp Pulse Resp B/P Pulse Ox O2 Delivery O2 Flow Rate FiO2 06/13/17 22:20 Nasal Cannula 2.5 06/13/17 21:51 82 12 136/60 97 06/13/17 20:26 97.6 Intake and Output 06/13/17 06/13/17 06/14/17 15:00 23:00 07:00 Intake Total 2540 ml 4600 ml 1416.4 ml Output Total 400 ml 1910 ml 2100 ml Balance 2140 ml 2690 ml -683.6 ml Exam Constitutional: alert Head: normocephalic Eyes: nl sclera ENMT: mucosa pink and moist Respiratory: clear to auscultation Cardiovascular: regular rate and rhythm Gastrointestinal: non-tender, soft Extremities: other (L heal and lateral part of 1st MTP joint has callous with roughened skin, no redness though, L knee is bandaged) Results Result Diagram: 06/14/17 0457 06/14/17 0457 Results 24 hrs Laboratory Tests Test 06/13/17 09:00 06/13/17 12:15 06/13/17 20:35 06/13/17 22:47 White Blood Count 11.1 H Red Blood Count 4.23 L Hemoglobin 12.5 L 9.7 #L Hematocrit 38.3 L 30.0 #L Mean Corpuscular Volume 90.5 Mean Corpuscular Hemoglobin 29.6 Mean Corpuscular Hemoglobin Concent 32.6 Red Cell Distribution Width 13.2 Platelet Count 280 Mean Platelet Volume 11.1 H Neutrophils % 77.2 H Lymphocytes % 7.0 L Monocytes % 13.5 H Eosinophils % 1.4 Basophils % 0.1 Nucleated Red Blood Cells % 0.0 Neutrophils # 8.6 H Lymphocytes # 0.8 Monocytes # 1.5 H Eosinophils # 0.2 Basophils # 0.0 Nucleated Red Blood Cells # 0.0 Erythrocyte Sedimentation Rate 75.0 H Prothrombin Time 13.5 Prothrombin Time Ratio 1.1 INR International Normalized Ratio 1.03 Activated Partial Thromboplast Time 23.9 L Sodium Level 131 L 131 L Potassium Level 4.0 4.2 Chloride Level 98 108 # Carbon Dioxide Level 23 13 #L Anion Gap 14 14 Blood Urea Nitrogen 21 H 18 Creatinine 1.54 H 1.26 H Glucose Level 104 192 Lactic Acid Level 0.9 0.9 1.8 Calcium Level 9.7 7.1 L Total Bilirubin 0.5 Direct Bilirubin 0.00 Indirect Bilirubin 0.5 Aspartate Amino Transf (AST/SGOT) 43 Alanine Aminotransferase (ALT/SGPT) 48 Alkaline Phosphatase 69 Troponin I 0.017 C-Reactive Protein 25.1 H Total Protein 8.0 Albumin 4.7 Globulin 3.30 H Albumin/Globulin Ratio 1.42 Test 06/14/17 04:57 White Blood Count 10.1 Red Blood Count 2.86 #L Hemoglobin 8.8 L Hematocrit 26.7 L Mean Corpuscular Volume 93.4 Mean Corpuscular Hemoglobin 30.8 Mean Corpuscular Hemoglobin Concent 33.0 Red Cell Distribution Width 13.1 Platelet Count 218 # Mean Platelet Volume 10.7 H Neutrophils % 88.0 H Lymphocytes % 3.4 L Monocytes % 7.5 Eosinophils % 0.0 Basophils % 0.1 Nucleated Red Blood Cells % 0.0 Neutrophils # 8.9 H Lymphocytes # 0.3 L Monocytes # 0.8 Eosinophils # 0.0 Basophils # 0.0 Nucleated Red Blood Cells # 0.0 Sodium Level 128 L Potassium Level 3.9 Chloride Level 105 Carbon Dioxide Level 19 L Anion Gap 8 Blood Urea Nitrogen 19 Creatinine 1.17 Glucose Level 179 Calcium Level 7.4 L Phosphorus Level 3.5 Magnesium Level 1.7 Medications Medications Current Medications Amlodipine Besylate (Norvasc) 5 mg BID PO ; Start 06/14/17 at 09:00 Cholecalciferol (Vitamin D) 2,000 unit DAILY PO ; Start 06/14/17 at 09:00 Fenofibrate (Tricor) 145 mg DAILY PO ; Start 06/14/17 at 09:00 Fluoxetine HCl (Prozac) 30 mg DAILY PO ; Start 06/14/17 at 09:00 Ondansetron HCl (Zofran Tab) 4 mg Q6H PRN PO NAUSEA AND/OR VOMITING; Start at 12:00 Acetaminophen (Tylenol Tab) 650 mg Q6H PRN PO PAIN LEVEL 1-3 OR FEVER; Start at 12:00 Morphine Sulfate (morphine) 2 mg Q4H PRN IV SEVERE PAIN LEVEL 7-10; Start 06/13 at 12:00 Docusate Sodium (Colace) 100 mg Q12H PRN PO CONSTIPATION; Start 06/13/17 at 12: 00 Zolpidem Tartrate (Ambien) 5 mg QHS PRN PO SLEEP; Start 06/13/17 at 12:00 Miscellaneous Information 1 ea 1 ea NOTE XX ; Start 06/13/17 at 15:30; Stop at 15:29 Lactated Ringer's (Lr) 1,000 ml @ 125 mls/hr Q8H IV Last administered on t 22:31; Admin Dose 125 MLS/HR; Start 06/13/17 at 20:30 Tramadol HCl (Ultram) 50 mg Q6 PO Last administered on 06/14/17 06:16; Admin Dose 50 MG; Start 06/13/17 at 12:00; Stop 06/16/17 at 11:59 Hydromorphone HCl 1 mg 1 mg Q3H PRN IV PAIN LEVEL 8-10; Start 06/13/17 at 20:30 Vancomycin HCl (Vancocin) 250 ml @ 125 mls/hr Q12 IVPB Last administered on 21:27; Admin Dose 125 MLS/HR; Start 06/13/17 at 21:00; Stop 06/14/17 at 10:59 Ondansetron HCl (Zofran Inj) 4 mg Q6H PRN IV NAUSEA AND/OR VOMITING; Start at 20:30 Bisacodyl (Dulcolax Supp) 10 mg Q12H PRN [place] CONSTIPATION; Start 06/13/17 at 20: 30 Magnesium Hydroxide (Milk Of Mag) 30 ml BID PRN PO CONSTIPATION; Start at 20:30 Sodium Biphosphate/ Sodium Phosphate (Fleet Enema) 133 ml DAILY PRN [place] CONSTIPATION; Start 06/13/17 at 20:30 Docusate Sodium (Colace) 100 mg BID PO Last administered on 06/13/17 21:28; Admin Dose 100 MG; Start 06/13/17 at 21:00 Diphenhydramine HCl (Benadryl) 25 mg Q6H PRN PO PRURITUS; Start 06/13/17 at 20: 30 Acetaminophen/ Hydrocodone Bitart ([place] (7.5-325)) 1 tab Q4H PRN PO PAIN LEVEL 1-3; Start 06/13/17 at 20:30 Acetaminophen/ Hydrocodone Bitart ([place] (7.5-325)) 2 tab Q4H PRN PO PAIN LEVEL 4-7; Start 06/13/17 at 20:30 Aspirin (Ecotrin) 325 mg BID PO ; Start 06/14/17 at 09:00 Pantoprazole (Protonix Tab) 40 mg BID@06,18 PO Last administered on 06/14/17 06:16; Admin Dose 40 MG; Start 7/14/17 at 06:00 Pregabalin (Lyrica) 50 mg BID PO Last administered on 06/13/17t 23:39; Admin Dose 50 MG; Start 06/13/17 at 22:30 LUCILA MONTERO MD Jun 14, 2017 06:58
--- NOTE | 2017-06-14 07:42 | PDOCDIS ---
Discharge Instructions DIAGNOSIS Discharge Diagnosis s/p removal infected TKA, implantation of abx spacer CONDITION Patient Condition: Good HOME CARE INSTRUCTIONS: Diet Instructions: Regular ACTIVITY: Activity Restrictions: Slowly Increase Activity Rest between Activity Avoid heavy lifting Do not operate Machinery Do not operate Power Tool Avoid Heavy Housework Keep Limb Elevated FOLLOW UP/APPOINTMENTS Follow-up Plan follow up in the office on 06/24/17 REFERRALS Other Referrals S/P TKA Physical Therapy: Three times per week at home x 2 weeks Daily in Rehab/SNF WB STATUS: WBAT 1. Strengthening exercises for both upper and un-operated lower extremities. 2. Gait training with front wheeled walker 3. Active range of motion exercises to operative knee. 4. When not working on knee range of motion exercises, distal towel roll under operative ankle/distal calf to promote full extension. 5. DO NOT PUT ANYTHING BEHIND OPERATIVE KNEE!!! 6. Quadriceps and hamstring strengthening. 7. May switch to cane in contra lateral hand 6 weeks after surgery. 8. Physical Therapy can open case if nursing is not available. 9. Use Ice Machine as instructed from date of surgery while at rest 3X/day. 10. Patient requires mobile SCDs to reduce risk of developing DVT following TKA. Patient will use the mobile SCDs for 30 days postoperatively. Bathing assistance by home health aide twice weekly if Medicare patient. Occupational Therapy: Evaluation for assistive devices and ADL training. Wound Care: Keep incision dry & covered with Tegaderm until first visit with Dr. French Anticoagulation Orders: Enteric Coated Aspirin 325 mg po bid x 6 weeks from date of surgery Follow-up:Call for an appointment with Dr. French in 1 week after discharged from hospital at DME Orders: [facility], 3-in-1 Commode, Polar ice machine, Mobile SCDs JOSE D SMALL PA-C Jun 14, 2017 07:42
[2017-06-14] MEDS ORDERED: HYDR-3605 PO (07:43)
[2017-06-14] MEDS ORDERED: TRAM50TA2 PO (07:43)
[2017-06-14] MEDS ORDERED: PANT40TA4 PO (07:43)
[2017-06-14] MEDS ORDERED: PREG50CA PO (07:43)
[2017-06-14] MEDS ORDERED: ASPI325T32 PO (07:43)
[2017-06-14 07:53] LABS: ADD UMIC YES; UR ASCORBIC ACID NEGATIVE (NEGATIVE); UR BACTERIA FEW /HPF (NONE SEEN); UR BILIRUBIN (Dip) NEGATIVE (NEGATIVE); UR BLOOD (Dip) 3+ mg/dL (NEGATIVE); UR CLARITY CLEAR (CLEAR); UR COLOR YELLOW (YELLOW); UR GLUCOSE (Dip) 2+ mg/dL (NEGATIVE); UR KETONES (Dip) NEGATIVE (NEGATIVE); UR LEUKOCYTE ESTERASE (Dip) NEGATIVE Leu/ul (NEGATIVE); UR NITRITE (Dip) NEGATIVE (NEGATIVE); UR RBC 15 /HPF (0-5); UR SPECIFIC GRAVITY (Dip) 1.012 (1.003-1.030); UR TOTAL PROTEIN (Dip) NEGATIVE (NEGATIVE); UR UROBILINOGEN (Dip) NEGATIVE (NEGATIVE)
[2017-06-14 08:27] VITALS: BP 128/60; RESP 18
[2017-06-14] MEDS: FLUOXETINE 10 MG CAP PO SCH (09:10)
[2017-06-14] MEDS: ASPIRIN (EC) 325 MG TAB PO SCH ×2 (09:10→21:15)
[2017-06-14] MEDS: DOCUSATE SODIUM 100 MG CAP PO SCH ×2 (09:12→21:15)
[2017-06-14] MEDS: VANCOMYCIN 1 GM (PMX) 250 ML IVPB SCH (09:12)
[2017-06-14] MEDS: PREGABALIN 50 MG CAP PO SCH ×2 (09:13→21:17)
[2017-06-14] MEDS: FENOFIBRATE 145 MG TAB PO SCH (09:13)
[2017-06-14] MEDS: CHOLECALCIFEROL 1,000 UNIT TAB PO SCH (09:13)
[2017-06-14] MEDS: AMLODIPINE 5 MG TAB PO SCH ×2 (09:13→21:15)
--- NOTE | 2017-06-14 09:37 | CONS ---
Date/Time of Note Date/Time of Note DATE: 06/14/17 TIME: 09:36 Assessment/Plan Assessment/Plan Additional Assessment/Plan 1. Septic left knee 2. Mild renal insuff, resolved 3. HBP, meds continued 4. Elev tri and chol, meds resumed 5. NIVVS ordered->neg Consultation Date/Type/Reason Admit Date/Time Jun 13, 2017 at 09:42 Initial Consult Date 06/14/17 Type of Consultation: ID Detailed Summary Respiratory: No cough, No shortness of breath Cardiovascular: No chest pain Gastrointestinal: no complaints Genitourinary: no complaints Musculoskeletal: bone/joint pain (mild left knee pain) Exam/Review of Systems Vital Signs Vitals Vital Signs Date Time Temp Pulse Resp B/P Pulse Ox O2 Delivery O2 Flow Rate FiO2 06/14/17 08:27 98.3 71 18 128/60 97 06/14/17 05:00 Nasal Cannula 06/13/17 22:20 2.5 Intake and Output 06/13/17 06/13/17 06/14/17 14:59 22:59 06:59 Intake Total 2540 ml 4600 ml 1416.4 ml Output Total 400 ml 1910 ml 2220 ml Balance 2140 ml 2690 ml -803.6 ml Exam Neck: No jvd Respiratory: clear to auscultation Cardiovascular: regular rate and rhythm Gastrointestinal: soft Extremities: No edema (and no calf tend) Results Result Diagram: 06/14/17 0457 06/14/17 0457 Results 24 hrs Laboratory Tests Test 06/13/17 12:15 06/13/17 20:35 06/13/17 22:47 06/14/17 04:57 Lactic Acid Level 0.9 1.8 Hemoglobin 9.7 #L 8.8 L Hematocrit 30.0 #L 26.7 L Sodium Level 131 L 128 L Potassium Level 4.2 3.9 Chloride Level 108 # 105 Carbon Dioxide Level 13 #L 19 L Anion Gap 14 8 Blood Urea Nitrogen 18 19 Creatinine 1.26 H 1.17 Glucose Level 192 179 Calcium Level 7.1 L 7.4 L White Blood Count 10.1 Red Blood Count 2.86 #L Mean Corpuscular Volume 93.4 Mean Corpuscular Hemoglobin 30.8 Mean Corpuscular Hemoglobin Concent 33.0 Red Cell Distribution Width 13.1 Platelet Count 218 # Mean Platelet Volume 10.7 H Neutrophils % 88.0 H Lymphocytes % 3.4 L Monocytes % 7.5 Eosinophils % 0.0 Basophils % 0.1 Nucleated Red Blood Cells % 0.0 Neutrophils # 8.9 H Lymphocytes # 0.3 L Monocytes # 0.8 Eosinophils # 0.0 Basophils # 0.0 Nucleated Red Blood Cells # 0.0 Phosphorus Level 3.5 Magnesium Level 1.7 Test 06/14/17 05:20 Urine Color YELLOW Urine Clarity CLEAR Urine pH 5.0 Urine Specific [place] 1.012 Urine Ketones NEGATIVE Urine Nitrite NEGATIVE Urine Bilirubin NEGATIVE Urine Urobilinogen NEGATIVE Urine Leukocyte Esterase NEGATIVE Urine Microscopic RBC 15 H Urine Microscopic WBC 3 Urine Bacteria FEW A Urine Hemoglobin 3+ H Urine Glucose 2+ H Urine Total Protein NEGATIVE Medications Medications Current Medications Amlodipine Besylate (Norvasc) 5 mg BID PO Last administered on 06/14/17 09:13 ; Admin Dose 5 MG; Start 06/14/17 at 09:00 Cholecalciferol (Vitamin D) 2,000 unit DAILY PO Last administered on 06/14/17 09:13; Admin Dose 2,000 UNIT; Start 06/14/17 at 09:00 Fenofibrate (Tricor) 145 mg DAILY PO Last administered on 06/14/17 09:13; Admin Dose 145 MG; Start 06/14/17 at 09:00 Fluoxetine HCl (Prozac) 30 mg DAILY PO Last administered on 06/14/17 09:10; Admin Dose 30 MG; Start 06/14/17 at 09:00 Ondansetron HCl (Zofran Tab) 4 mg Q6H PRN PO NAUSEA AND/OR VOMITING; Start at 12:00 Acetaminophen (Tylenol Tab) 650 mg Q6H PRN PO PAIN LEVEL 1-3 OR FEVER; Start at 12:00 Morphine Sulfate (morphine) 2 mg Q4H PRN IV SEVERE PAIN LEVEL 7-10; Start 06/13 at 12:00 Docusate Sodium (Colace) 100 mg Q12H PRN PO CONSTIPATION; Start 06/13/17 at 12: 00 Zolpidem Tartrate (Ambien) 5 mg QHS PRN PO SLEEP; Start 06/13/17 at 12:00 Miscellaneous Information 1 ea 1 ea NOTE XX ; Start 06/13/17 at 15:30; Stop at 15:29 Lactated Ringer's (Lr) 1,000 ml @ 125 mls/hr Q8H IV Last administered on 22:31; Admin Dose 125 MLS/HR; Start 06/13/17 at 20:30 Tramadol HCl (Ultram) 50 mg Q6 PO Last administered on 06/14/17 06:16; Admin Dose 50 MG; Start 06/13/17 at 12:00; Stop 06/16/17 at 11:59 Hydromorphone HCl 1 mg 1 mg Q3H PRN IV PAIN LEVEL 8-10; Start 06/13/17 at 20:30 Vancomycin HCl (Vancocin) 250 ml @ 125 mls/hr Q12 IVPB Last administered on 09:12; Admin Dose 125 MLS/HR; Start 06/13/17 at 21:00; Stop 06/14/17 at 10:59 Ondansetron HCl (Zofran Inj) 4 mg Q6H PRN IV NAUSEA AND/OR VOMITING; Start at 20:30 Bisacodyl (Dulcolax Supp) 10 mg Q12H PRN [place] CONSTIPATION; Start 06/13/17 at 20: 30 Magnesium Hydroxide (Milk Of Mag) 30 ml BID PRN PO CONSTIPATION; Start at 20:30 Sodium Biphosphate/ Sodium Phosphate (Fleet Enema) 133 ml DAILY PRN [place] CONSTIPATION; Start 06/13/17 at 20:30 Docusate Sodium (Colace) 100 mg BID PO Last administered on 06/14/17 09:12; Admin Dose 100 MG; Start 06/13/17 at 21:00 Diphenhydramine HCl (Benadryl) 25 mg Q6H PRN PO PRURITUS; Start 06/13/17 at 20: 30 Acetaminophen/ Hydrocodone Bitart ([place] (7.5-325)) 1 tab Q4H PRN PO PAIN LEVEL 1-3; Start 06/13/17 at 20:30 Acetaminophen/ Hydrocodone Bitart ([place] (7.5-325)) 2 tab Q4H PRN PO PAIN LEVEL 4-7; Start 06/13/17 at 20:30 Aspirin (Ecotrin) 325 mg BID PO Last administered on 06/14/17 09:10; Admin Dose 325 MG; Start 06/14/17 at 09:00 Pantoprazole (Protonix Tab) 40 mg BID@,18 PO Last administered on 06/14/17 06:16; Admin Dose 40 MG; Start 06/14/17 at 06:00 Pregabalin (Lyrica) 50 mg BID PO Last administered on 06/14/17 09:13; Admin Dose 50 MG; Start 06/13/17 at 22:30 KADEN ORDOÑEZ MD Jun 14, 2017 09:37
--- NOTE | 2017-06-14 10:44 | PN ---
Date/Time of Note Date/Time of Note DATE: 06/14/17 TIME: 10:42 Assessment/Plan Lines/Catheters IV Catheter Type (from Nrsg): Peripheral IV Sad[place] in Place (from Nrsg): Yes Assessment/Plan Assessment/Plan Stable, POD #1 -continue abx therapy per Dr. Moon -pain meds as needed -ASA/SCDs -OOB with PT - TDWB -check AM labs -monitor drain -will plan for [facility] when stable for transfer Subjective 24 Hr Interval Summary No acute overnight events. Denies f/c. Antibiotic therapy being managed by Dr. Moon. Blood cultures were positive for gram + cocci in clusters. VSS, afebrile. Exam/Review of Systems Vital Signs Vitals Vital Signs Date Time Temp Pulse Resp B/P Pulse Ox O2 Delivery O2 Flow Rate FiO2 06/14/17 08:27 98.3 71 18 128/60 97 06/14/17 05:00 Nasal Cannula 06/13/17 22:20 2.5 Intake and Output 06/13/17 06/13/17 06/14/17 15:00 23:00 07:00 Intake Total 2540 ml 4600 ml 1416.4 ml Output Total 400 ml 1910 ml 2220 ml Balance 2140 ml 2690 ml -803.6 ml Exam Free Text/Dictation Hemovac: 130cc Dressing dry Incision clean, dry, and intact without redness or drainage Thigh soft 5/5 Quadriceps, Tibialis Anterior, EHL, Gastroc, Soleus, Peroneals Normal sensation Palpable DT/PT, CR <2 sec No distal edema Results Result Diagram: 06/14/17 0457 06/14/17 0457 JOSE D SMALL PA-C Jun 14, 2017 10:44
[2017-06-14] MEDS ORDERED: VANCOMYCIN IV PER PHARMACY XX SCH (11:30)
[2017-06-14] MEDS: SOD CHLORIDE 0.9% 1,000 ML IV SCH ×2 (12:05→22:30)
[2017-06-14] MEDS: LISINOPRIL 20 MG TAB PO SCH (12:06)
[2017-06-14 12:08] VITALS: BP 148/67; PULSE 77
[2017-06-14 20:17] VITALS: BP 127/59; RESP 18
[2017-06-14] MEDS: VANCOMYCIN 1 GM in NS 250 ML IVPB SCH (21:23)
[2017-06-15] MEDS: traMADol 50 MG TAB PO SCH ×4 (00:44→18:00)
[2017-06-15 03:31] LABS: ADD UMIC YES; UR BILIRUBIN (Dip) NEGATIVE (NEGATIVE); UR BLOOD (Dip) TRACE (NEGATIVE); UR CLARITY CLEAR (CLEAR); UR COLOR LT. YELLOW (YELLOW); UR GLUCOSE (Dip) NEGATIVE (NEGATIVE); UR KETONES (Dip) NEGATIVE (NEGATIVE); UR LEUKOCYTE ESTERASE (Dip) NEGATIVE (NEGATIVE); UR NITRITE (Dip) NEGATIVE (NEGATIVE); UR TOTAL PROTEIN (Dip) NEGATIVE (NEGATIVE); UR UROBILINOGEN (Dip) 1.0 E.U./dL (0.1-1.0)
[2017-06-15 04:08] LABS: UR BACTERIA RARE /HPF (NONE SEEN); UR SQUAMOUS EPITHELIAL CELL RARE /HPF (FEW); URINE RBCS 0-2 /HPF (0)
[2017-06-15] MEDS: SOD CHLORIDE 0.9% 1,000 ML IV SCH ×2 (05:15→20:17)
[2017-06-15] MEDS: PANTOPRAZOLE (EC) 40 MG TAB PO SCH ×2 (05:16→18:16)
[2017-06-15 05:50] LABS: ADD SCAN DIFF NO
[2017-06-15 05:55] LABS: BASOPHILS % 0.1 % (0.0-2.0); EOSINOPHILS # 0.1 10^3/ul (0.0-0.5); EOSINOPHILS % 0.6 % (0.0-7.0); HEMATOCRIT 25.7 % (42.0-52.0); HEMOGLOBIN 8.2 g/dl (14.0-18.0); LYMPHOCYTES # 1.3 10^3/ul (0.8-2.9); LYMPHOCYTES % 11.5 % (15.0-51.0); MEAN CORPUSCULAR HEMOGLOBIN 29.4 pg (29.0-33.0); MEAN CORPUSCULAR HGB CONC 31.9 g/dl (32.0-37.0); MEAN CORPUSCULAR VOLUME 92.1 fl (82.0-101.0); MEAN PLATELET VOLUME 10.8 fl (7.4-10.4); MONOCYTE # 1.4 10^3/ul (0.3-0.9); MONOCYTES % 12.7 % (0.0-11.0); NEUTROPHIL # 8.4 10^3/ul (1.6-7.5); NEUTROPHILS % 74.1 % (39.0-77.0); PLATELET COUNT 256 10^3/UL (140-415); RED BLOOD COUNT 2.79 10^6/ul (4.70-6.10); RED CELL DISTRIBUTION WIDTH 13.6 % (11.5-14.5); WHITE BLOOD COUNT 11.4 10^3/ul (4.8-10.8)
[2017-06-15 06:54] LABS: IRON 20 ug/dl (35-150)
[2017-06-15 06:59] LABS: MAGNESIUM 2.1 mg/dl (1.7-2.5); PHOSPHORUS 2.7 mg/dl (2.5-4.9)
[2017-06-15 07:00] VITALS: BP 195/92; RESP 18
[2017-06-15 07:03] LABS: TOTAL IRON BINDING CAPACITY 241 ug/dl (241-421)
[2017-06-15 07:07] LABS: CALCIUM 8.8 mg/dl (8.4-10.2); CREATININE 1.45 mg/dl (0.61-1.24); POTASSIUM 4.6 mmol/L (3.5-5.1)
[2017-06-15 07:35] LABS: THYROID STIMULATING HORMONE 1.88 MIU/L (0.465-4.680)
--- NOTE | 2017-06-15 07:50 | CONS ---
Date/Time of Note Date/Time of Note DATE: 06/15/17 TIME: 07:45 Assessment/Plan Assessment/Plan Chief Complaint/Hosp Course 1) L knee septic arthritis with hardware removed likely portal of entry was his foot where he has rough callouses and had developed a split to the heal after a lot of walking with sandals continue with vanco till sensi's of s.aureus is known anticipate 6 weeks of IV therapy pt will need a picc line will follow ESR, CRP weekly while on therapy, intial ones were noteably elevated 06/15 - unable to put in PICC line due to positive blood cx for s.aureus will repeat blood cx today and if neg by saturday then can put in picc line await sensi on s.aureus continue with iv vanco at present, but if MSSA will change to oxacillin 2) HTN 3) BPH 4) hyperlipidemia 5) low testosterone 6) s.aureus bacteremia blood cx were done prior to surgery sensi's should be ready by tomorrow repeat blood cx now this will not change the length of therapy but will order 2d echo, doubt he has endocarditis but if today's cx are still positive he will likely need a GILDA Problems: Consultation Date/Type/Reason Admit Date/Time Jun 13, 2017 at 09:42 Initial Consult Date 06/14/17 Type of Consultation: ID 24 HR Interval Summary Free Text/Dictation pt is feeling better in general has pain to L knee area when he moves it but was able to be up in chair yesterday no N, V no stools for last 5 days no SOB, dysphagia no new pains Exam/Review of Systems Vital Signs Vitals Vital Signs Date Time Temp Pulse Resp B/P Pulse Ox O2 Delivery O2 Flow Rate FiO2 06/14/17 20:17 98.1 70 18 127/59 94 06/14/17 12:08 Room Air 06/13/17 22:20 2.5 Intake and Output 06/14/17 06/14/17 06/15/17 15:00 23:00 07:00 Intake Total 250 ml 480 ml 1120 ml Output Total 100 ml 1460 ml Balance 250 ml 380 ml -340 ml Exam Constitutional: alert, oriented Eyes: nl sclera Respiratory: clear to auscultation Cardiovascular: regular rate and rhythm Gastrointestinal: non-tender, soft Extremities: other (L knee is bandaged) Results Result Diagram: 06/15/17 0450 06/15/17 0450 Results 24 hrs Laboratory Tests Test 06/14/17 19:54 06/15/17 02:45 06/15/17 02:47 06/15/17 04:50 Vancomycin Level Trough 14.7 Urine Color LT. YELLOW Urine Clarity CLEAR Urine pH 6.0 Urine Specific [place] 1.010 Urine Ketones NEGATIVE Urine Nitrite NEGATIVE Urine Bilirubin NEGATIVE Urine Urobilinogen 1.0 E.U./dL Urine Leukocyte Esterase NEGATIVE Urine Microscopic RBC 0-2 Urine Microscopic WBC 0-2 Urine Squamous Epithelial Cells RARE Urine Bacteria RARE Urine Hemoglobin TRACE Urine Glucose NEGATIVE Urine Total Protein NEGATIVE Urine Random Sodium 69 White Blood Count 11.4 H Red Blood Count 2.79 L Hemoglobin 8.2 L Hematocrit 25.7 L Mean Corpuscular Volume 92.1 Mean Corpuscular Hemoglobin 29.4 Mean Corpuscular Hemoglobin Concent 31.9 L Red Cell Distribution Width 13.6 Platelet Count 256 Mean Platelet Volume 10.8 H Neutrophils % 74.1 Lymphocytes % 11.5 L Monocytes % 12.7 H Eosinophils % 0.6 Basophils % 0.1 Nucleated Red Blood Cells % 0.0 Neutrophils # 8.4 H Lymphocytes # 1.3 Monocytes # 1.4 H Eosinophils # 0.1 Basophils # 0.0 Nucleated Red Blood Cells # 0.0 Sodium Level 143 Potassium Level 4.6 Chloride Level 107 Carbon Dioxide Level 24 Anion Gap 17 H Blood Urea Nitrogen 24 H Creatinine 1.45 H Glucose Level 97 # Calcium Level 8.8 Phosphorus Level 2.7 Magnesium Level 2.1 Iron Level 20 L Total Iron Binding Capacity 241 Percent Iron Saturation 8 L Medications Medications Current Medications Amlodipine Besylate (Norvasc) 5 mg BID PO Last administered on 06/14/17 21:15 ; Admin Dose 5 MG; Start 06/14/17 at 09:00 Cholecalciferol (Vitamin D) 2,000 unit DAILY PO Last administered on 06/14/17 09:13; Admin Dose 2,000 UNIT; Start 06/14/17 at 09:00 Fenofibrate (Tricor) 145 mg DAILY PO Last administered on 06/14/17 09:13; Admin Dose 145 MG; Start 06/14/17 at 09:00 Fluoxetine HCl (Prozac) 30 mg DAILY PO Last administered on 06/14/17 09:10; Admin Dose 30 MG; Start 06/14/17 at 09:00 Ondansetron HCl (Zofran Tab) 4 mg Q6H PRN PO NAUSEA AND/OR VOMITING; Start at 12:00 Acetaminophen (Tylenol Tab) 650 mg Q6H PRN PO PAIN LEVEL 1-3 OR FEVER; Start at 12:00 Morphine Sulfate (morphine) 2 mg Q4H PRN IV SEVERE PAIN LEVEL 7-10; Start 06/13 at 12:00 Docusate Sodium (Colace) 100 mg Q12H PRN PO CONSTIPATION; Start 06/13/17 at 12: 00 Zolpidem Tartrate (Ambien) 5 mg QHS PRN PO SLEEP; Start 06/13/17 at 12:00 Miscellaneous Information 1 ea NOTE XX ; Start 06/13/17 at 15:30; Stop 06/17/17 at 15:29 Tramadol HCl (Ultram) 50 mg Q6 PO Last administered on 06/15/17 05:16; Admin Dose 50 MG; Start 06/13/17 at 12:00; Stop 06/16/17 at 11:59 Hydromorphone HCl (Dilaudid) 1 mg Q3H PRN IV PAIN LEVEL 8-10; Start 06/13/17 at 20:30 Ondansetron HCl (Zofran Inj) 4 mg Q6H PRN IV NAUSEA AND/OR VOMITING; Start at 20:30 Bisacodyl (Dulcolax Supp) 10 mg Q12H PRN [place] CONSTIPATION; Start 06/13/17 at 20: 30 Magnesium Hydroxide (Milk Of Mag) 30 ml BID PRN PO CONSTIPATION; Start at 20:30 Sodium Biphosphate/ Sodium Phosphate (Fleet Enema) 133 ml DAILY PRN [place] CONSTIPATION; Start 06/13/17 at 20:30 Docusate Sodium (Colace) 100 mg BID PO Last administered on 06/14/17 21:15; Admin Dose 100 MG; Start 06/13/17 at 21:00 Diphenhydramine HCl (Benadryl) 25 mg Q6H PRN PO PRURITUS; Start 06/13/17 at 20: 30 Acetaminophen/ Hydrocodone Bitart ([place] (7.5-325)) 1 tab Q4H PRN PO PAIN LEVEL 1-3 Last administered on 06/14/17 19:25; Admin Dose 1 TAB; Start at 20:30 Acetaminophen/ Hydrocodone Bitart ([place] (7.5-325)) 2 tab Q4H PRN PO PAIN LEVEL 4-7; Start 06/13/17 at 20:30 Aspirin (Ecotrin) 325 mg BID PO Last administered on 06/14/17 21:15; Admin Dose 325 MG; Start 06/14/17 at 09:00 Pantoprazole (Protonix Tab) 40 mg BID@06,18 PO Last administered on 06/15/17 05:16; Admin Dose 40 MG; Start 06/14/17 at 06:00 Pregabalin 50 mg 50 mg BID PO Last administered on 06/14/17 21:17; Admin Dose 50 MG; Start 06/13/17 at 22:30 Sodium Chloride (NS) 1,000 ml @ 80 mls/hr [id number] IV Last administered on 06/15 05:15; Admin Dose 80 MLS/HR; Start 06/14/17 at 10:00 Lisinopril 40 mg 40 mg DAILY PO Last administered on 06/14/17 12:06; Admin Dose 40 MG; Start 06/14/17 at 10:00 Vancomycin HCl (Vancocin) 250 ml @ 125 mls/hr Q12H IVPB Last administered on 21:23; Admin Dose 125 MLS/HR; Start 06/14/17 at 21:00 Vancomycin HCl (Vanco Iv Per Pharmacy) PER PHARMACY DOSING NOTE XX ; Start 06/14 at 11:30 LUCILA MONTERO MD Jun 15, 2017 07:50
[2017-06-15] MEDS: HYDROCODONE/APAP (7.5/325) TAB PO PRN ×3 (08:19→16:44)
[2017-06-15] MEDS: PREGABALIN 50 MG CAP PO SCH ×2 (08:20→20:17)
[2017-06-15] MEDS: FENOFIBRATE 145 MG TAB PO SCH (08:20)
[2017-06-15] MEDS: VANCOMYCIN 1 GM in NS 250 ML IVPB SCH (08:20)
[2017-06-15] MEDS: AMLODIPINE 5 MG TAB PO SCH ×2 (08:20→20:16)
[2017-06-15] MEDS: FLUOXETINE 10 MG CAP PO SCH (08:20)
[2017-06-15] MEDS: LISINOPRIL 20 MG TAB PO SCH (08:21)
[2017-06-15] MEDS: DOCUSATE SODIUM 100 MG CAP PO SCH ×2 (08:21→20:15)
[2017-06-15] MEDS: CHOLECALCIFEROL 1,000 UNIT TAB PO SCH (08:25)
[2017-06-15] MEDS: ASPIRIN (EC) 325 MG TAB PO SCH ×2 (08:25→20:16)
--- NOTE | 2017-06-15 09:34 | PN ---
Date/Time of Note Date/Time of Note DATE: 06/15/17 TIME: 09:29 Assessment/Plan Lines/Catheters IV Catheter Type (from Nrsg): Peripheral IV Sadler in Place (from Nrsg): No Assessment/Plan Assessment/Plan POD # 2. Stable. -Drains removed -Pain meds -OOB with PT -TDWB Left LE -Vanco as per Dr. Moon -ASA/SCDs -Follow cultures Subjective 24 Hr Interval Summary Comfortable. Minimal pain. On Vanco. Exam/Review of Systems Vital Signs Vitals Vital Signs Date Time Temp Pulse Resp B/P Pulse Ox O2 Delivery O2 Flow Rate FiO2 06/15/17 07:00 97.5 79 18 195/92 97 06/14/17 12:08 Room Air 06/13/17 22:20 2.5 Intake and Output 06/14/17 06/14/17 06/15/17 15:00 23:00 07:00 Intake Total 250 ml 480 ml 1120 ml Output Total 100 ml 1460 ml Balance 250 ml 380 ml -340 ml Exam Free Text/Dictation Hemovac: 160 cc Dressing dry Incision clean, dry, and intact without redness or drainage 5/5 Tibialis Anterior, EHL, Gastroc Soleus, Peroneals Normal sensation Palpable DP/PT, CR < 2 Sec No distal edema Blood Cultures: + S. aureus (sens pending) Intraop culturs: No growth thus far Results Result Diagram: 06/15/170 06/15/17 045 MIR MCNAMARA MD Jun 15, 2017 09:33
--- NOTE | 2017-06-15 11:25 | CONS ---
Date/Time of Note Date/Time of Note DATE: 06/15/17 TIME: 11:21 Assessment/Plan Assessment/Plan Additional Assessment/Plan 1. Septic Knee s/p hardware removal - stable - cont IV Vanc for now. - Await final sensi. - Repeat blood cultures today, PICC line on Saturday if negative 2. Acute Kidney Injury - resolved yesterday and worsened today - increase IVF rate to 100 cc/hr - monitor 3. HTN - stable Consultation Date/Type/Reason Admit Date/Time Jun 13, 2017 at 09:42 Initial Consult Date 06/14/17 Type of Consultation: ID 24 HR Interval Summary Free Text/Dictation Doing well, had dressing changed this AM. Minimal pain. Afebrile. Exam/Review of Systems Vital Signs Vitals Vital Signs Date Time Temp Pulse Resp B/P Pulse Ox O2 Delivery O2 Flow Rate FiO2 06/15/17 07:00 97.5 79 18 195/92 97 06/14/17 12:08 Room Air 06/13/17 22:20 2.5 Intake and Output 06/14/17 06/14/17 06/15/17 15:00 23:00 07:00 Intake Total 250 ml 480 ml 1120 ml Output Total 100 ml 1460 ml Balance 250 ml 380 ml -340 ml Exam Respiratory: clear to auscultation, normal air movement Cardiovascular: nl pulses, regular rate and rhythm Gastrointestinal: non-tender, soft Results Result Diagram: 06/15/17 0450 06/15/17 0450 Results 24 hrs Laboratory Tests Test 06/14/17 19:54 06/15/17 02:45 06/15/17 02:47 06/15/17 04:50 Vancomycin Level Trough 14.7 Urine Color LT. YELLOW Urine Clarity CLEAR Urine pH 6.0 Urine Specific [place] 1.010 Urine Ketones NEGATIVE Urine Nitrite NEGATIVE Urine Bilirubin NEGATIVE Urine Urobilinogen 1.0 E.U./dL Urine Leukocyte Esterase NEGATIVE Urine Microscopic RBC 0-2 Urine Microscopic WBC 0-2 Urine Squamous Epithelial Cells RARE Urine Bacteria RARE Urine Hemoglobin TRACE Urine Glucose NEGATIVE Urine Total Protein NEGATIVE Urine Random Sodium 69 White Blood Count 11.4 H Red Blood Count 2.79 L Hemoglobin 8.2 L Hematocrit 25.7 L Mean Corpuscular Volume 92.1 Mean Corpuscular Hemoglobin 29.4 Mean Corpuscular Hemoglobin Concent 31.9 L Red Cell Distribution Width 13.6 Platelet Count 256 Mean Platelet Volume 10.8 H Neutrophils % 74.1 Lymphocytes % 11.5 L Monocytes % 12.7 H Eosinophils % 0.6 Basophils % 0.1 Nucleated Red Blood Cells % 0.0 Neutrophils # 8.4 H Lymphocytes # 1.3 Monocytes # 1.4 H Eosinophils # 0.1 Basophils # 0.0 Nucleated Red Blood Cells # 0.0 Sodium Level 143 Potassium Level 4.6 Chloride Level 107 Carbon Dioxide Level 24 Anion Gap 17 H Blood Urea Nitrogen 24 H Creatinine 1.45 H Glucose Level 97 # Calcium Level 8.8 Phosphorus Level 2.7 Magnesium Level 2.1 Iron Level 20 L Total Iron Binding Capacity 241 Percent Iron Saturation 8 L Ferritin 328.0 H Thyroid Stimulating Hormone (TSH) 1.880 Medications Medications Current Medications Amlodipine Besylate (Norvasc) 5 mg BID PO Last administered on 06/15/17 08:20 ; Admin Dose 5 MG; Start 06/14/17 at 09:00 Cholecalciferol (Vitamin D) 2,000 unit DAILY PO Last administered on 06/15/17 08:25; Admin Dose 2,000 UNIT; Start 06/14/17 at 09:00 Fenofibrate (Tricor) 145 mg DAILY PO Last administered on 06/15/17 08:20; Admin Dose 145 MG; Start 06/14/17 at 09:00 Fluoxetine HCl (Prozac) 30 mg DAILY PO Last administered on 06/15/17 08:20; Admin Dose 30 MG; Start 06/14/17 at 09:00 Ondansetron HCl (Zofran Tab) 4 mg Q6H PRN PO NAUSEA AND/OR VOMITING; Start at 12:00 Acetaminophen (Tylenol Tab) 650 mg Q6H PRN PO PAIN LEVEL 1-3 OR FEVER; Start at 12:00 Morphine Sulfate (morphine) 2 mg Q4H PRN IV SEVERE PAIN LEVEL 7-10; Start 06/13 at 12:00 Docusate Sodium (Colace) 100 mg Q12H PRN PO CONSTIPATION; Start 06/13/17 at 12: 00 Zolpidem Tartrate (Ambien) 5 mg QHS PRN PO SLEEP; Start 06/13/17 at 12:00 Miscellaneous Information 1 ea NOTE XX ; Start 06/13/17 at 15:30; Stop 06/17/17 at 15:29 Tramadol HCl (Ultram) 50 mg Q6 PO Last administered on 06/15/17 05:16; Admin Dose 50 MG; Start 06/13/17 at 12:00; Stop 06/16/17 at 11:59 Hydromorphone HCl (Dilaudid) 1 mg Q3H PRN IV PAIN LEVEL 8-10; Start 06/13/17 at 20:30 Ondansetron HCl (Zofran Inj) 4 mg Q6H PRN IV NAUSEA AND/OR VOMITING; Start at 20:30 Bisacodyl (Dulcolax Supp) [address] CONSTIPATION; Start 06/13/17 at 20: 30 Magnesium Hydroxide (Milk Of Mag) 30 ml BID PRN PO CONSTIPATION; Start at 20:30 Sodium Biphosphate/ Sodium Phosphate (Fleet Enema) [address] CONSTIPATION; Start 06/13/17 at 20:30 Docusate Sodium (Colace) 100 mg BID PO Last administered on 06/15/17 08:21; Admin Dose 100 MG; Start 06/13/17 at 21:00 Diphenhydramine HCl (Benadryl) 25 mg Q6H PRN PO PRURITUS; Start 06/13/17 at 20: 30 Acetaminophen/ Hydrocodone Bitart ([place] (7.5-325)) 1 tab Q4H PRN PO PAIN LEVEL 1-3 Last administered on 06/14/17 19:25; Admin Dose 1 TAB; Start at 20:30 Acetaminophen/ Hydrocodone Bitart ([place] (7.5-325)) 2 tab Q4H PRN PO PAIN LEVEL 4-7 Last administered on 06/15/17 08:19; Admin Dose 2 TAB; Start at 20:30 Aspirin (Ecotrin) 325 mg BID PO Last administered on 06/15/17 08:25; Admin Dose 325 MG; Start 06/14/17 at 09:00 Pantoprazole (Protonix Tab) 40 mg BID@,18 PO Last administered on 06/15/17 05:16; Admin Dose 40 MG; Start 06/14/17 at 06:00 Pregabalin 50 mg 50 mg BID PO Last administered on 06/15/17 08:20; Admin Dose 50 MG; Start 06/13/17 at 22:30 Sodium Chloride (NS) 1,000 ml @ 100 mls/hr Q10H IV Last administered on 05:15; Admin Dose 80 MLS/HR; Start 06/14/17 at 10:00 Lisinopril 40 mg 40 mg DAILY PO Last administered on 06/15/17 08:21; Admin Dose 40 MG; Start 06/14/17 at 10:00 Vancomycin HCl (Vancocin) 250 ml @ 125 mls/hr Q12H IVPB Last administered on 08:20; Admin Dose 125 MLS/HR; Start 06/14/17 at 21:00 Vancomycin HCl (Vanco Iv Per Pharmacy) PER PHARMACY DOSING NOTE XX ; Start 06/14 at 11:30 SRINIVASAN TAMEZ MD Jun 15, 2017 11:25
[2017-06-15 20:50] VITALS: BP 160/75; RESP 20
[2017-06-15] MEDS: VANCOMYCIN 750 MG in SOD CHLORIDE 0.9% 150 ML IVPB SCH (23:24)
[2017-06-16] MEDS: HYDROCODONE/APAP (7.5/325) TAB PO PRN ×3 (04:10→18:47)
[2017-06-16 05:39] LABS: ADD SCAN DIFF NO
[2017-06-16 05:45] LABS: BASOPHILS % 0.2 % (0.0-2.0); EOSINOPHILS # 0.5 10^3/ul (0.0-0.5); HEMATOCRIT 26.5 % (42.0-52.0); HEMOGLOBIN 8.8 g/dl (14.0-18.0); LYMPHOCYTES # 1.6 10^3/ul (0.8-2.9); LYMPHOCYTES % 13.9 % (15.0-51.0); MEAN CORPUSCULAR HGB CONC 33.2 g/dl (32.0-37.0); MEAN CORPUSCULAR VOLUME 90.4 fl (82.0-101.0); MEAN PLATELET VOLUME 10.4 fl (7.4-10.4); MONOCYTE # 1.3 10^3/ul (0.3-0.9); MONOCYTES % 11.3 % (0.0-11.0); NEUTROPHIL # 7.5 10^3/ul (1.6-7.5); NEUTROPHILS % 67.3 % (39.0-77.0); PLATELET COUNT 300 10^3/UL (140-415); RED BLOOD COUNT 2.93 10^6/ul (4.70-6.10); RED CELL DISTRIBUTION WIDTH 13.6 % (11.5-14.5); WHITE BLOOD COUNT 11.2 10^3/ul (4.8-10.8)
[2017-06-16] MEDS: traMADol 50 MG TAB PO SCH ×2 (05:48)
[2017-06-16] MEDS: PANTOPRAZOLE (EC) 40 MG TAB PO SCH ×2 (05:50→17:40)
[2017-06-16] MEDS: SOD CHLORIDE 0.9% 1,000 ML IV SCH ×2 (05:52→16:51)
[2017-06-16 06:09] LABS: CALCIUM 9.1 mg/dl (8.4-10.2); CREATININE 1.27 mg/dl (0.61-1.24); POTASSIUM 4.1 mmol/L (3.5-5.1)
--- NOTE | 2017-06-16 07:25 | CONS ---
Date/Time of Note Date/Time of Note DATE: 06/16/17 TIME: 07:21 Assessment/Plan Assessment/Plan Chief Complaint/Hosp Course 1) L knee septic arthritis with hardware removed likely portal of entry was his foot where he has rough callouses and had developed a split to the heal after a lot of walking with sandals continue with vanco till sensi's of s.aureus is known anticipate 6 weeks of IV therapy pt will need a picc line will follow ESR, CRP weekly while on therapy, intial ones were noteably elevated 06/15 - unable to put in PICC line due to positive blood cx for s.aureus will repeat blood cx today and if neg by saturday then can put in picc line await sensi on s.aureus continue with iv vanco at present, but if MSSA will change to oxacillin 06/16 - delay is final sensi's but it likely is MSSA, if confirmed will change to oxacillin later today 2) HTN 3) BPH 4) hyperlipidemia 5) low testosterone 6) s.aureus bacteremia blood cx were done prior to surgery sensi's should be ready by tomorrow repeat blood cx now this will not change the length of therapy but will order 2d echo, doubt he has endocarditis but if today's cx are still positive he will likely need a GILDA 06/16 - repeat blood cx remain NGTD await results of 2d echo Problems: Consultation Date/Type/Reason Admit Date/Time Jun 13, 2017 at 09:42 Initial Consult Date 06/14/17 Type of Consultation: ID 24 HR Interval Summary Free Text/Dictation pt is doing well, able to participate in PT well no N, V, D states he is urinating more frequently Exam/Review of Systems Vital Signs Vitals Vital Signs Date Time Temp Pulse Resp B/P Pulse Ox O2 Delivery O2 Flow Rate FiO2 06/15/17 20:50 98.0 86 20 160/75 91 06/14/17 12:08 Room Air 06/13/17 22:20 2.5 Intake and Output 06/15/17 06/15/17 06/16/17 15:00 23:00 07:00 Intake Total 560 ml 940 ml 1630 ml Output Total 1250 ml 1400 ml Balance 560 ml -310 ml 230 ml Exam Constitutional: alert, oriented Eyes: nl sclera ENMT: mucosa pink and moist Respiratory: clear to auscultation Cardiovascular: regular rate and rhythm Gastrointestinal: non-tender, soft Extremities: other (L knee is bandaged) Results Result Diagram: 06/16/17 0504 06/16/17 0504 Results 24 hrs Laboratory Tests Test 06/16/17 05:04 White Blood Count 11.2 H Red Blood Count 2.93 L Hemoglobin 8.8 L Hematocrit 26.5 L Mean Corpuscular Volume 90.4 Mean Corpuscular Hemoglobin 30.0 Mean Corpuscular Hemoglobin Concent 33.2 Red Cell Distribution Width 13.6 Platelet Count 300 Mean Platelet Volume 10.4 Neutrophils % 67.3 Lymphocytes % 13.9 L Monocytes % 11.3 H Eosinophils % 4.0 Basophils % 0.2 Nucleated Red Blood Cells % 0.0 Neutrophils # 7.5 Lymphocytes # 1.6 Monocytes # 1.3 H Eosinophils # 0.5 Basophils # 0.0 Nucleated Red Blood Cells # 0.0 Sodium Level 139 Potassium Level 4.1 Chloride Level 105 Carbon Dioxide Level 26 Anion Gap 12 Blood Urea Nitrogen 21 H Creatinine 1.27 H Glucose Level 106 Calcium Level 9.1 Medications Medications Current Medications Amlodipine Besylate (Norvasc) 5 mg BID PO Last administered on 06/15/17 20:16 ; Admin Dose 5 MG; Start 06/14/17 at 09:00 Cholecalciferol (Vitamin D) 2,000 unit DAILY PO Last administered on 06/15/17 08:25; Admin Dose 2,000 UNIT; Start 06/14/17 at 09:00 Fenofibrate (Tricor) 145 mg DAILY PO Last administered on 06/15/17 08:20; Admin Dose 145 MG; Start 06/14/17 at 09:00 Fluoxetine HCl (Prozac) 30 mg DAILY PO Last administered on 06/15/17 08:20; Admin Dose 30 MG; Start 06/14/17 at 09:00 Ondansetron HCl (Zofran Tab) 4 mg Q6H PRN PO NAUSEA AND/OR VOMITING; Start at 12:00 Acetaminophen (Tylenol Tab) 650 mg Q6H PRN PO PAIN LEVEL 1-3 OR FEVER; Start at 12:00 Morphine Sulfate (morphine) 2 mg Q4H PRN IV SEVERE PAIN LEVEL 7-10; Start 06/13 at 12:00 Docusate Sodium (Colace) 100 mg Q12H PRN PO CONSTIPATION Last administered on 20:15; Admin Dose 100 MG; Start 06/13/17 at 12:00 Zolpidem Tartrate (Ambien) 5 mg QHS PRN PO SLEEP; Start 06/13/17 at 12:00 Miscellaneous Information 1 ea NOTE XX ; Start 06/13/17 at 15:30; Stop 06/17/17 at 15:29 Tramadol HCl (Ultram) 50 mg Q6 PO Last administered on 06/15/17 05:16; Admin Dose 50 MG; Start 06/13/17 at 12:00; Stop 06/16/17 at 11:59 Hydromorphone HCl (Dilaudid) 1 mg Q3H PRN IV PAIN LEVEL 8-10; Start 06/13/17 at 20:30 Ondansetron HCl (Zofran Inj) 4 mg Q6H PRN IV NAUSEA AND/OR VOMITING; Start at 20:30 Bisacodyl (Dulcolax Supp) 10 mg Q12H PRN [place] CONSTIPATION; Start 06/13/17 at 20: 30 Magnesium Hydroxide (Milk Of Mag) 30 ml BID PRN PO CONSTIPATION Last administered on 06/15/17 20:15; Admin Dose 30 ML; Start 06/13/17 at 20:30 Sodium Biphosphate/ Sodium Phosphate (Fleet Enema) 133 ml DAILY PRN [place] CONSTIPATION; Start 06/13/17 at 20:30 Docusate Sodium (Colace) 100 mg BID PO Last administered on 06/15/17 20:15; Admin Dose 100 MG; Start 06/13/17 at 21:00 Diphenhydramine HCl (Benadryl) 25 mg Q6H PRN PO PRURITUS; Start 06/13/17 at 20: 30 Acetaminophen/ Hydrocodone Bitart ([place] (7.5-325)) 1 tab Q4H PRN PO PAIN LEVEL 1-3 Last administered on 06/14/17 19:25; Admin Dose 1 TAB; Start at 20:30 Acetaminophen/ Hydrocodone Bitart ([place] (7.5-325)) 2 tab Q4H PRN PO PAIN LEVEL 4-7 Last administered on 06/16/17 04:10; Admin Dose 2 TAB; Start at 20:30 Aspirin (Ecotrin) 325 mg BID PO Last administered on 06/15/17 20:16; Admin Dose 325 MG; Start 06/14/17 at 09:00 Pantoprazole (Protonix Tab) 40 mg BID@06,18 PO Last administered on 06/16/17 05:50; Admin Dose 40 MG; Start 06/14/17 at 06:00 Pregabalin 50 mg 50 mg BID PO Last administered on 06/15/17 20:17; Admin Dose 50 MG; Start 06/13/17 at 22:30 Sodium Chloride (NS) 1,000 ml @ 100 mls/hr Q10H IV Last administered on 05:52; Admin Dose 100 MLS/HR; Start 06/14/17 at 10:00 Lisinopril (Zestril) 40 mg DAILY PO Last administered on 06/15/17 08:21; Admin Dose 40 MG; Start 06/14/17 at 10:00 Vancomycin HCl PER PHARMACY DOSING NOTE XX ; Start 06/14/17 at 11:30 Vancomycin HCl/ Sodium Chloride (Vancocin/NS) 150 ml @ 75 mls/hr Q12H IVPB Last administered on 06/15/17 23:24; Admin Dose 75 MLS/HR; Start 06/15/17 at 23 :00 LUCILA MONTERO MD Jun 16, 2017 07:24
[2017-06-16 08:07] VITALS: BP 183/79; RESP 18
[2017-06-16] MEDS: LISINOPRIL 20 MG TAB PO SCH (08:14)
[2017-06-16] MEDS: DOCUSATE SODIUM 100 MG CAP PO SCH ×2 (08:14→20:03)
[2017-06-16] MEDS: CHOLECALCIFEROL 1,000 UNIT TAB PO SCH (08:14)
[2017-06-16] MEDS: ASPIRIN (EC) 325 MG TAB PO SCH ×2 (08:14→20:03)
[2017-06-16] MEDS: FENOFIBRATE 145 MG TAB PO SCH (08:14)
[2017-06-16] MEDS: FLUOXETINE 10 MG CAP PO SCH (08:15)
[2017-06-16] MEDS: PREGABALIN 50 MG CAP PO SCH ×2 (08:15→20:03)
[2017-06-16] MEDS: AMLODIPINE 5 MG TAB PO SCH ×2 (08:15→20:02)
--- NOTE | 2017-06-16 09:57 | RADRPT ---
Echocardiogram Report Patient Name: NELLIE VELÁZQUEZ Gender: Male Date: 1940 Study Date: 15-Jun-2017 [employer] Supervisor: [facility] Location: I Ref. Physician: LUCILA MONTERO Quality: Adequate Procedures: Transthoracic echocardiogram with complete 2D, M-Mode, and doppler examination. Indications: S. aureus bacteremia. 2D/M Mode Doppler Measurement Value Normal Ranges Measurement Value Normal Ranges LVIDd 2D 4.8 3.5 - 5.6 cm AV Peak [place] 1.8 m/sec LVIDs 2D 3.3 2.1 - 4.1 cm AV Peak PG 13.0 mmHg FS 2D 31.3 % LVOT Peak [place] 1.1 m/sec LVPWd 2D 1.3 0.6 - 1.1 cm LVOT Peak PG 5.0 mmHg IVSd 2D 1.3 0.6 - 1.1 cm MV E Peak [place] 1.3 m/sec IVS/LVPW 2D 1.0 MV A Peak [place] 0.9 m/sec AoR Diam 2D 3.0 2.0 - 3.7 cm MV E/A 1.4 LA/Ao 2D 1 0 - 1 MV Decel Time 190 msec EDV 2D 108.0 cm3 MV E/A 1.4 ESV 2D 35.0 cm3 TR Peak [place] 3.3 m/sec LA Dimen 2D 3.9 2.3 - 4.0 cm TR Peak PG 45.0 mmHg RVSP 48.0 mmHg Findings Left Ventricle: Normal left ventricular systolic function. Normal left ventricular cavity size. Mild concentric left ventricular hypertrophy. Ejection fraction is visually estimated at 65 %. Tissue Doppler/Mitral Doppler indices are within normal limits. Right Ventricle: Normal right ventricular size. Normal right ventricular systolic function. Left Atrium: The left atrium is normal in size. Right Atrium: The right atrium is normal in size. Mitral Valve: Normal appearance of the mitral valve. Mild mitral annular calcification. Trace mitral regurgitation. Aortic Valve: No significant aortic stenosis or insufficiency. Aortic cusps appear mildly calcified. Tricuspid Valve: Normal appearance of the tricuspid valve. Right ventricular systolic pressure is consistent with moderate pulmonary hypertension. Estimated peak PA systolic pressure 48 mmHg. There is mild tricuspid regurgitation. Pulmonic Valve: Pulmonic valve not well visualized. Pericardium: Normal pericardium with no significant pericardial effusion. Aorta: Normal aortic root. IVC: Normal size and normal respiratory collapse consistent with normal right atrial pressure. Conclusions 1.Normal left ventricular systolic function. Normal left ventricular cavity size. Mild concentric left ventricular hypertrophy. Ejection fraction is visually estimated at 65 %. Tissue Doppler/Mitral Doppler indices are within normal limits. 2.Normal right ventricular size. Normal right ventricular systolic function. 3.Normal appearance of the tricuspid valve. Right ventricular systolic pressure is consistent with moderate pulmonary hypertension. Estimated peak PA systolic pressure 48 mmHg. There is mild tricuspid regurgitation. 4.Normal size and normal respiratory collapse consistent with normal right atrial pressure. 5.Normal pericardium with no significant pericardial effusion. 6.No Vegetation, masses, or thrombi seen. Electronically Signed By: Jonah Pabon 16-Jun-2017 09:56:40 -0700 Patient Name: NELLIE VELÁZQUEZ Study Date: 15-Jun-2017 [id number]
--- NOTE | 2017-06-16 10:01 | CONS ---
Date/Time of Note Date/Time of Note DATE: 06/16/17 TIME: 10:00 Assessment/Plan Assessment/Plan Additional Assessment/Plan 1. Septic Knee s/p hardware removal - stable - cont IV Vanc for now --> anticipate switch to oxacillin if cultures confirm MSSA - Repeat blood cultures NGTD, PICC tomorrow if negative 2. Acute Kidney Injury - improved with IVF - cont fluids for now - monitor 3. HTN - stable Consultation Date/Type/Reason Admit Date/Time Jun 13, 2017 at 09:42 Initial Consult Date 06/14/17 Type of Consultation: ID [id number] HR Interval Summary Free Text/Dictation Feeling well, afebrile. Stood up and went to the bathroom yesterday. Exam/Review of Systems Vital Signs Vitals Vital Signs Date Time Temp Pulse Resp B/P Pulse Ox O2 Delivery O2 Flow Rate FiO2 06/16/17 08:07 98.4 71 18 183/79 93 06/14/17 12:08 Room Air 06/13/17 22:20 2.5 Intake and Output 06/15/17 06/15/17 06/16/17 15:00 23:00 07:00 Intake Total 560 ml 940 ml 1630 ml Output Total 1250 ml 1400 ml Balance 560 ml -310 ml 230 ml Exam Respiratory: clear to auscultation, normal air movement Cardiovascular: nl pulses, regular rate and rhythm Results Result Diagram: 06/16/17 0504 06/16/17 0504 Results 24 hrs Laboratory Tests Test 06/16/17 05:04 White Blood Count 11.2 H Red Blood Count 2.93 L Hemoglobin 8.8 L Hematocrit 26.5 L Mean Corpuscular Volume 90.4 Mean Corpuscular Hemoglobin 30.0 Mean Corpuscular Hemoglobin Concent 33.2 Red Cell Distribution Width 13.6 Platelet Count 300 Mean Platelet Volume 10.4 Neutrophils % 67.3 Lymphocytes % 13.9 L Monocytes % 11.3 H Eosinophils % 4.0 Basophils % 0.2 Nucleated Red Blood Cells % 0.0 Neutrophils # 7.5 Lymphocytes # 1.6 Monocytes # 1.3 H Eosinophils # 0.5 Basophils # 0.0 Nucleated Red Blood Cells # 0.0 Sodium Level 139 Potassium Level 4.1 Chloride Level 105 Carbon Dioxide Level 26 Anion Gap 12 Blood Urea Nitrogen 21 H Creatinine 1.27 H Glucose Level 106 Calcium Level 9.1 Medications Medications Current Medications Amlodipine Besylate (Norvasc) 5 mg BID PO Last administered on 06/16/17 08:15 ; Admin Dose 5 MG; Start 06/14/17 at 09:00 Cholecalciferol (Vitamin D) 2,000 unit DAILY PO Last administered on 06/16/17 08:14; Admin Dose 2,000 UNIT; Start 06/14/17 at 09:00 Fenofibrate (Tricor) 145 mg DAILY PO Last administered on 06/16/17 08:14; Admin Dose 145 MG; Start 06/14/17 at 09:00 Fluoxetine HCl (Prozac) 30 mg DAILY PO Last administered on 06/16/17 08:15; Admin Dose 30 MG; Start 06/14/17 at 09:00 Ondansetron HCl (Zofran Tab) 4 mg Q6H PRN PO NAUSEA AND/OR VOMITING; Start at 12:00 Acetaminophen (Tylenol Tab) 650 mg Q6H PRN PO PAIN LEVEL 1-3 OR FEVER; Start at 12:00 Morphine Sulfate (morphine) 2 mg Q4H PRN IV SEVERE PAIN LEVEL 7-10; Start 06/13 at 12:00 Docusate Sodium (Colace) 100 mg Q12H PRN PO CONSTIPATION Last administered on 20:15; Admin Dose 100 MG; Start 06/13/17 at 12:00 Zolpidem Tartrate (Ambien) 5 mg QHS PRN PO SLEEP; Start 06/13/17 at 12:00 Miscellaneous Information 1 ea NOTE XX ; Start 06/13/17 at 15:30; Stop 06/17/17 at 15:29 Tramadol HCl (Ultram) 50 mg Q6 PO Last administered on 06/15/17 05:16; Admin Dose 50 MG; Start 06/13/17 at 12:00; Stop 06/16/17 at 11:59 Hydromorphone HCl (Dilaudid) 1 mg Q3H PRN IV PAIN LEVEL 8-10; Start 06/13/17 at 20:30 Ondansetron HCl (Zofran Inj) 4 mg Q6H PRN IV NAUSEA AND/OR VOMITING; Start at 20:30 Bisacodyl (Dulcolax Supp) 10 mg Q12H PRN [place] CONSTIPATION; Start 06/13/17 at 20: 30 Magnesium Hydroxide (Milk Of Mag) 30 ml BID PRN PO CONSTIPATION Last administered on 06/15/17 20:15; Admin Dose 30 ML; Start 06/13/17 at 20:30 Sodium Biphosphate/ Sodium Phosphate (Fleet Enema) 133 ml DAILY PRN [place] CONSTIPATION; Start 06/13/17 at 20:30 Docusate Sodium (Colace) 100 mg BID PO Last administered on 06/16/17 08:14; Admin Dose 100 MG; Start 06/13/17 at 21:00 Diphenhydramine HCl (Benadryl) 25 mg Q6H PRN PO PRURITUS; Start 06/13/17 at 20: 30 Acetaminophen/ Hydrocodone Bitart ([place] (7.5-325)) 1 tab Q4H PRN PO PAIN LEVEL 1-3 Last administered on 06/14/17 19:25; Admin Dose 1 TAB; Start at 20:30 Acetaminophen/ Hydrocodone Bitart ([place] (7.5-325)) 2 tab Q4H PRN PO PAIN LEVEL 4-7 Last administered on 06/16/17 09:24; Admin Dose 2 TAB; Start at 20:30 Aspirin (Ecotrin) 325 mg BID PO Last administered on 06/16/17 08:14; Admin Dose 325 MG; Start 06/14/17 at 09:00 Pantoprazole (Protonix Tab) 40 mg BID@06,18 PO Last administered on 06/16/17 05:50; Admin Dose 40 MG; Start 06/14/17 at 06:00 Pregabalin 50 mg 50 mg BID PO Last administered on 06/16/17 08:15; Admin Dose 50 MG; Start 06/13/17 at 22:30 Sodium Chloride (NS) 1,000 ml @ 100 mls/hr Q10H IV Last administered on 05:52; Admin Dose 100 MLS/HR; Start 06/14/17 at 10:00 Lisinopril (Zestril) 40 mg DAILY PO Last administered on 06/16/17 08:14; Admin Dose 40 MG; Start 06/14/17 at 10:00 Vancomycin HCl PER PHARMACY DOSING NOTE XX ; Start 06/14/17 at 11:30 Vancomycin HCl/ Sodium Chloride (Vancocin/NS) 150 ml @ 75 mls/hr Q12H IVPB Last administered on 06/15/17t 23:24; Admin Dose 75 MLS/HR; Start 06/15/17 at 23 :00 SRINIVASAN TAMEZ MD Jun 16, 2017 10:01
--- NOTE | 2017-06-16 10:39 | PN ---
Date/Time of Note Date/Time of Note DATE: 06/16/17 TIME: 10:37 Assessment/Plan Lines/Catheters IV Catheter Type (from Nrsg): Peripheral IV Sadler in Place (from Nrsg): No Assessment/Plan Assessment/Plan POD # 3. Stable. -Continue Vanco -Follow cultures. If MSSA, Dr. Moon will switch to Oxacillin -OOB with PT -TDWB Right LE -Pain meds -ASA/SCDs -PICC line -Possible transfer to [facility] tomorrow Subjective 24 Hr Interval Summary Comfortable. On Vanco still. Exam/Review of Systems Vital Signs Vitals Vital Signs Date Time Temp Pulse Resp B/P Pulse Ox O2 Delivery O2 Flow Rate FiO2 06/16/17 08:07 98.4 71 18 183/79 93 06/14/17 12:08 Room Air 06/13/17 22:20 2.5 Intake and Output 06/15/17 06/15/17 06/16/17 15:00 23:00 07:00 Intake Total 560 ml 940 ml 1630 ml Output Total 1250 ml 1400 ml Balance 560 ml -310 ml 230 ml Exam Free Text/Dictation Dressing dry Incision clean, dry, and intact without redness or drainage 5/5 Tibialis Anterior, EHL, Gastroc Soleus, Peroneals Normal sensation Palpable DP/PT, CR < 2 Sec No distal edema Cultures: + S. aureus (sens pending) Results Result Diagram: 06/16/17 0504 06/16/17 0504 MIR MCNAMARA MD Jun 16, 2017 10:38
[2017-06-16] MEDS: VANCOMYCIN 750 MG in SOD CHLORIDE 0.9% 150 ML IVPB SCH (11:01)
[2017-06-16] MEDS: OXACILLIN 2 GM in SOD CHLORIDE 0.9% 50 ML IVPB SCH ×4 (14:12→21:38)
[2017-06-16 19:43] VITALS: BP 150/70; RESP 16
[2017-06-17] MEDS: OXACILLIN 2 GM in SOD CHLORIDE 0.9% 50 ML IVPB SCH ×5 (01:05→17:53)
[2017-06-17] MEDS: SOD CHLORIDE 0.9% 1,000 ML IV SCH ×2 (05:05→13:00)
[2017-06-17] MEDS: PANTOPRAZOLE (EC) 40 MG TAB PO SCH ×2 (05:05→17:53)
[2017-06-17 05:20] LABS: ADD SCAN DIFF NO
[2017-06-17 05:27] LABS: BASOPHILS % 0.2 % (0.0-2.0); EOSINOPHILS # 0.6 10^3/ul (0.0-0.5); EOSINOPHILS % 5.1 % (0.0-7.0); HEMATOCRIT 27.6 % (42.0-52.0); LYMPHOCYTES # 1.7 10^3/ul (0.8-2.9); LYMPHOCYTES % 14.2 % (15.0-51.0); MEAN CORPUSCULAR HEMOGLOBIN 29.4 pg (29.0-33.0); MEAN CORPUSCULAR HGB CONC 32.6 g/dl (32.0-37.0); MEAN CORPUSCULAR VOLUME 90.2 fl (82.0-101.0); MEAN PLATELET VOLUME 10.3 fl (7.4-10.4); MONOCYTE # 1.2 10^3/ul (0.3-0.9); MONOCYTES % 10.2 % (0.0-11.0); NEUTROPHIL # 7.8 10^3/ul (1.6-7.5); NUCLEATED RED BLOOD CELLS% 0.2 /100WBC (0.0-0.0); PLATELET COUNT 311 10^3/UL (140-415); RED BLOOD COUNT 3.06 10^6/ul (4.70-6.10); RED CELL DISTRIBUTION WIDTH 13.9 % (11.5-14.5); WHITE BLOOD COUNT 11.9 10^3/ul (4.8-10.8)
[2017-06-17] MEDS: HYDROCODONE/APAP (7.5/325) TAB PO PRN ×4 (05:27→18:49)
[2017-06-17 06:00] LABS: CALCIUM 9.9 mg/dl (8.4-10.2); CREATININE 1.17 mg/dl (0.61-1.24); POTASSIUM 4.1 mmol/L (3.5-5.1)
[2017-06-17 08:05] VITALS: BP 172/78; RESP 18
[2017-06-17] MEDS ORDERED: LIDOCAINE 1% (MPF) 5 ML VIAL SC ONE (08:30)
--- NOTE | 2017-06-17 08:38 | PN ---
Date/Time of Note Date/Time of Note DATE: 06/17/17 TIME: 08:35 Assessment/Plan Lines/Catheters IV Catheter Type (from Nrsg): Peripheral IV Sadler in Place (from Nrsg): No Assessment/Plan Assessment/Plan Stable, POD #4 -switch from Vanco to oxacillin per ID -pain meds as needed -OOB with PT - TDWB -dressing changed -transfer to [facility] today -follow up in the office in 1 week Subjective 24 Hr Interval Summary No acute overnight events. Denies significant pain. Cultures positive for Staph Aureus. Will plan to switch to oxacillin per Dr. Moon. Stable for transfer to [facility] today. Exam/Review of Systems Vital Signs Vitals Vital Signs Date Time Temp Pulse Resp B/P Pulse Ox O2 Delivery O2 Flow Rate FiO2 06/17/17 08:05 98.3 60 18 172/78 96 06/14/17 12:08 Room Air 06/13/17 22:20 2.5 Intake and Output 06/16/17 06/16/17 06/17/17 15:00 23:00 07:00 Intake Total 50 ml 1520 ml 1600 ml Output Total 900 ml 2300 ml Balance 50 ml 620 ml -700 ml Exam Free Text/Dictation Dressing dry Incision clean, dry, and intact without redness or drainage Thigh soft 5/5 Quadriceps, Tibialis Anterior, EHL, Gastroc, Soleus, Peroneals Normal sensation Palpable DT/PT, CR <2 sec No distal edema Results Result Diagram: 06/17/17 0438 06/17/17 0438 JOSE D SMLAL PA-C Jun 17, 2017 08:38
--- NOTE | 2017-06-17 08:47 | CONS ---
Date/Time of Note Date/Time of Note DATE: 06/17/17 TIME: 08:40 Assessment/Plan Assessment/Plan Chief Complaint/Hosp Course 1) L knee septic arthritis with hardware removed likely portal of entry was his foot where he has rough callouses and had developed a split to the heal after a lot of walking with sandals continue with vanco till sensi's of s.aureus is known anticipate 6 weeks of IV therapy pt will need a picc line will follow ESR, CRP weekly while on therapy, intial ones were noteably elevated 06/15 - unable to put in PICC line due to positive blood cx for s.aureus will repeat blood cx today and if neg by saturday then can put in picc line await sensi on s.aureus continue with iv vanco at present, but if MSSA will change to oxacillin 06/16 - delay is final sensi's but it likely is MSSA, if confirmed will change to oxacillin later today 06/17 - oxacillin started yesterday and to continue thru 07/24/17 to get weekly cbc, bmp, esr, crp and fax results to my office repeat blood cx are NGTD for 48 hours, picc line placement ordered 2) HTN 3) BPH 4) hyperlipidemia 5) low testosterone 6) s.aureus bacteremia blood cx were done prior to surgery sensi's should be ready by tomorrow repeat blood cx now this will not change the length of therapy but will order 2d echo, doubt he has endocarditis but if today's cx are still positive he will likely need a GILDA 06/16 - repeat blood cx remain NGTD await results of 2d echo 06/17 - very normal 2d echo repeat blood cx are NGTD picc line to be placed Problems: Consultation Date/Type/Reason Admit Date/Time Jun 13, 2017 at 09:42 Initial Consult Date 06/14/17 Type of Consultation: ID 24 HR Interval Summary Free Text/Dictation pt doing ok, had large BM yesterday pain to L knee is minimal no N, V Exam/Review of Systems Vital Signs Vitals Vital Signs Date Time Temp Pulse Resp B/P Pulse Ox O2 Delivery O2 Flow Rate FiO2 06/17/17 08:05 98.3 60 18 172/78 96 06/14/17 12:08 Room Air 06/13/17 22:20 2.5 Intake and Output 06/16/17 06/16/17 06/17/17 15:00 23:00 07:00 Intake Total 50 ml 1520 ml 1600 ml Output Total 900 ml 2300 ml Balance 50 ml 620 ml -700 ml Exam Constitutional: alert, oriented Results Result Diagram: 06/17/17 0438 06/17/17 0438 Results 24 hrs Laboratory Tests Test 06/17/17 04:38 White Blood Count 11.9 H Red Blood Count 3.06 L Hemoglobin 9.0 L Hematocrit 27.6 L Mean Corpuscular Volume 90.2 Mean Corpuscular Hemoglobin 29.4 Mean Corpuscular Hemoglobin Concent 32.6 Red Cell Distribution Width 13.9 Platelet Count 311 Mean Platelet Volume 10.3 Neutrophils % 66.0 Lymphocytes % 14.2 L Monocytes % 10.2 Eosinophils % 5.1 Basophils % 0.2 Nucleated Red Blood Cells % 0.2 H Neutrophils # 7.8 H Lymphocytes # 1.7 Monocytes # 1.2 H Eosinophils # 0.6 H Basophils # 0.0 Nucleated Red Blood Cells # 0.0 Sodium Level 142 Potassium Level 4.1 Chloride Level 101 Carbon Dioxide Level 27 Anion Gap 18 H Blood Urea Nitrogen 17 Creatinine 1.17 Glucose Level 89 Calcium Level 9.9 Medications Medications Current Medications Amlodipine Besylate (Norvasc) 5 mg BID PO Last administered on 06/16/17 20:02 ; Admin Dose 5 MG; Start 06/14/17 at 09:00 Cholecalciferol (Vitamin D) 2,000 unit DAILY PO Last administered on 06/16/17 08:14; Admin Dose 2,000 UNIT; Start 06/14/17 at 09:00 Fenofibrate (Tricor) 145 mg DAILY PO Last administered on 06/16/17 08:14; Admin Dose 145 MG; Start 06/14/17 at 09:00 Fluoxetine HCl (Prozac) 30 mg DAILY PO Last administered on 06/16/17 08:15; Admin Dose 30 MG; Start 06/14/17 at 09:00 Ondansetron HCl (Zofran Tab) 4 mg Q6H PRN PO NAUSEA AND/OR VOMITING; Start at 12:00 Acetaminophen (Tylenol Tab) 650 mg Q6H PRN PO PAIN LEVEL 1-3 OR FEVER; Start at 12:00 Morphine Sulfate (morphine) 2 mg Q4H PRN IV SEVERE PAIN LEVEL 7-10; Start 06/13 at 12:00 Docusate Sodium (Colace) 100 mg Q12H PRN PO CONSTIPATION Last administered on 20:15; Admin Dose 100 MG; Start 06/13/17 at 12:00 Zolpidem Tartrate (Ambien) 5 mg QHS PRN PO SLEEP; Start 06/13/17 at 12:00 Miscellaneous Information 1 ea NOTE XX ; Start 06/13/17 at 15:30; Stop 06/17/17 at 15:29 Hydromorphone HCl (Dilaudid) 1 mg Q3H PRN IV PAIN LEVEL 8-10; Start 06/13/17 at 20:30 Ondansetron HCl (Zofran Inj) 4 mg Q6H PRN IV NAUSEA AND/OR VOMITING; Start at 20:30 Bisacodyl (Dulcolax Supp) 10 mg Q12H PRN [place] CONSTIPATION; Start 06/13/17 at 20: 30 Magnesium Hydroxide (Milk Of Mag) 30 ml BID PRN PO CONSTIPATION Last administered on 06/15/17 20:15; Admin Dose 30 ML; Start 06/13/17 at 20:30 Sodium Biphosphate/ Sodium Phosphate (Fleet Enema) 133 ml DAILY PRN [place] CONSTIPATION Last administered on 06/16/17 17:40; Admin Dose 133 ML; Start at 20:30 Docusate Sodium (Colace) 100 mg BID PO Last administered on 06/16/17 20:03; Admin Dose 100 MG; Start 06/13/17 at 21:00 Diphenhydramine HCl (Benadryl) 25 mg Q6H PRN PO PRURITUS; Start 06/13/17 at 20: 30 Acetaminophen/ Hydrocodone Bitart ([place] (7.5-325)) 1 tab Q4H PRN PO PAIN LEVEL 1-3 Last administered on 06/14/17 19:25; Admin Dose 1 TAB; Start at 20:30 Acetaminophen/ Hydrocodone Bitart ([place] (7.5-325)) 2 tab Q4H PRN PO PAIN LEVEL 4-7 Last administered on 06/17/17 05:27; Admin Dose 2 TAB; Start at 20:30 Aspirin (Ecotrin) 325 mg BID PO Last administered on 06/16/17 20:03; Admin Dose 325 MG; Start 06/14/17 at 09:00 Pantoprazole (Protonix Tab) 40 mg BID@06,18 PO Last administered on 06/17/17 05:05; Admin Dose 40 MG; Start 06/14/17 at 06:00 Pregabalin 50 mg 50 mg BID PO Last administered on 06/16/17 20:03; Admin Dose 50 MG; Start 06/13/17 at 22:30 Sodium Chloride (NS) 1,000 ml @ 100 mls/hr Q10H IV Last administered on 05:05; Admin Dose 100 MLS/HR; Start 06/14/17 at 10:00 Lisinopril 40 mg 40 mg DAILY PO Last administered on 06/16/17 08:14; Admin Dose 40 MG; Start 06/14/17 at 10:00 Oxacillin Sodium/ Sodium Chloride (Oxacillin/NS) 50 ml @ 100 mls/hr Q4 IVPB Last administered on 06/17/17 05:05; Admin Dose 100 MLS/HR; Start 06/16/17 at 21:00 LUCILA MONTERO MD Jun 17, 2017 08:47
--- NOTE | 2017-06-17 08:53 | CONS ---
Date/Time of Note Date/Time of Note DATE: 06/17/17 TIME: 08:48 Assessment/Plan Assessment/Plan Additional Assessment/Plan 1. Left septic knee, on abx, rev with ortho and ID 2. BP is well controlled 3. OK to dc if OK with PT and ortho Consultation Date/Type/Reason Admit Date/Time Jun 13, 2017 at 09:42 Initial Consult Date 06/14/17 Type of Consultation: ID Detailed Summary Respiratory: No cough, No shortness of breath Cardiovascular: No chest pain Gastrointestinal: no complaints Genitourinary: no complaints Musculoskeletal: bone/joint pain (left knee pain is mild) Exam/Review of Systems Vital Signs Vitals Vital Signs Date Time Temp Pulse Resp B/P Pulse Ox O2 Delivery O2 Flow Rate FiO2 06/17/17 08:05 98.3 60 18 172/78 96 06/14/17 12:08 Room Air 06/13/17 22:20 2.5 Intake and Output 06/16/17 06/16/17 06/17/17 15:00 23:00 07:00 Intake Total 50 ml 1520 ml 1600 ml Output Total 900 ml 2300 ml Balance 50 ml 620 ml -700 ml Exam Neck: No jvd Respiratory: clear to auscultation Cardiovascular: regular rate and rhythm Gastrointestinal: soft Extremities: No edema Results Result Diagram: 06/17/17 0438 06/17/17 0438 Results 24 hrs Laboratory Tests Test 06/17/17 04:38 White Blood Count 11.9 H Red Blood Count 3.06 L Hemoglobin 9.0 L Hematocrit 27.6 L Mean Corpuscular Volume 90.2 Mean Corpuscular Hemoglobin 29.4 Mean Corpuscular Hemoglobin Concent 32.6 Red Cell Distribution Width 13.9 Platelet Count 311 Mean Platelet Volume 10.3 Neutrophils % 66.0 Lymphocytes % 14.2 L Monocytes % 10.2 Eosinophils % 5.1 Basophils % 0.2 Nucleated Red Blood Cells % 0.2 H Neutrophils # 7.8 H Lymphocytes # 1.7 Monocytes # 1.2 H Eosinophils # 0.6 H Basophils # 0.0 Nucleated Red Blood Cells # 0.0 Sodium Level 142 Potassium Level 4.1 Chloride Level 101 Carbon Dioxide Level 27 Anion Gap 18 H Blood Urea Nitrogen 17 Creatinine 1.17 Glucose Level 89 Calcium Level 9.9 Medications Medications Current Medications Amlodipine Besylate (Norvasc) 5 mg BID PO Last administered on 06/16/17 20:02 ; Admin Dose 5 MG; Start 06/14/17 at 09:00 Cholecalciferol (Vitamin D) 2,000 unit DAILY PO Last administered on 06/16/17 08:14; Admin Dose 2,000 UNIT; Start 06/14/17 at 09:00 Fenofibrate (Tricor) 145 mg DAILY PO Last administered on 06/16/17 08:14; Admin Dose 145 MG; Start 06/14/17 at 09:00 Fluoxetine HCl (Prozac) 30 mg DAILY PO Last administered on 06/16/17 08:15; Admin Dose 30 MG; Start 06/14/17 at 09:00 Ondansetron HCl (Zofran Tab) 4 mg Q6H PRN PO NAUSEA AND/OR VOMITING; Start at 12:00 Acetaminophen (Tylenol Tab) 650 mg Q6H PRN PO PAIN LEVEL 1-3 OR FEVER; Start at 12:00 Morphine Sulfate (morphine) 2 mg Q4H PRN IV SEVERE PAIN LEVEL 7-10; Start 06/13 at 12:00 Docusate Sodium (Colace) 100 mg Q12H PRN PO CONSTIPATION Last administered on 20:15; Admin Dose 100 MG; Start 06/13/17 at 12:00 Zolpidem Tartrate (Ambien) 5 mg QHS PRN PO SLEEP; Start 06/13/17 at 12:00 Miscellaneous Information 1 ea NOTE XX ; Start 06/13/17 at 15:30; Stop 06/17/17 at 15:29 Hydromorphone HCl (Dilaudid) 1 mg Q3H PRN IV PAIN LEVEL 8-10; Start 06/13/17 at 20:30 Ondansetron HCl (Zofran Inj) 4 mg Q6H PRN IV NAUSEA AND/OR VOMITING; Start at 20:30 Bisacodyl (Dulcolax Supp) 10 mg Q12H PRN [place] CONSTIPATION; Start 06/13/17 at 20: 30 Magnesium Hydroxide (Milk Of Mag) 30 ml BID PRN PO CONSTIPATION Last administered on 06/15/17 20:15; Admin Dose 30 ML; Start 06/13/17 at 20:30 Sodium Biphosphate/ Sodium Phosphate (Fleet Enema) 133 ml DAILY PRN [place] CONSTIPATION Last administered on 06/16/17 17:40; Admin Dose 133 ML; Start at 20:30 Docusate Sodium (Colace) 100 mg BID PO Last administered on 06/16/17 20:03; Admin Dose 100 MG; Start 06/13/17 at 21:00 Diphenhydramine HCl (Benadryl) 25 mg Q6H PRN PO PRURITUS; Start 06/13/17 at 20: 30 Acetaminophen/ Hydrocodone Bitart ([place] (7.5-325)) 1 tab Q4H PRN PO PAIN LEVEL 1-3 Last administered on 06/14/17 19:25; Admin Dose 1 TAB; Start at 20:30 Acetaminophen/ Hydrocodone Bitart ([place] (7.5-325)) 2 tab Q4H PRN PO PAIN LEVEL 4-7 Last administered on 06/17/17 05:27; Admin Dose 2 TAB; Start at 20:30 Aspirin (Ecotrin) 325 mg BID PO Last administered on 06/16/17 20:03; Admin Dose 325 MG; Start 06/14/17 at 09:00 Pantoprazole (Protonix Tab) 40 mg BID@06,18 PO Last administered on 06/17/17 05:05; Admin Dose 40 MG; Start 06/14/17 at 06:00 Pregabalin 50 mg 50 mg BID PO Last administered on 06/16/17 20:03; Admin Dose 50 MG; Start 06/13/17 at 22:30 Sodium Chloride (NS) 1,000 ml @ 100 mls/hr Q10H IV Last administered on 05:05; Admin Dose 100 MLS/HR; Start 06/14/17 at 10:00 Lisinopril 40 mg 40 mg DAILY PO Last administered on 06/16/17 08:14; Admin Dose 40 MG; Start 06/14/17 at 10:00 Oxacillin Sodium/ Sodium Chloride (Oxacillin/NS) 50 ml @ 100 mls/hr Q4 IVPB Last administered on 06/17/17 05:05; Admin Dose 100 MLS/HR; Start 06/16/17 at 21:00 KADEN ORDOÑEZ MD Jun 17, 2017 08:53
[2017-06-17] MEDS ORDERED: FERROUS FUMARATE (SR) TAB PO SCH (09:00)
[2017-06-17] MEDS: FENOFIBRATE 145 MG TAB PO SCH (09:26)
[2017-06-17] MEDS: DOCUSATE SODIUM 100 MG CAP PO SCH (09:26)
[2017-06-17] MEDS: CHOLECALCIFEROL 1,000 UNIT TAB PO SCH (09:26)
[2017-06-17] MEDS: ASPIRIN (EC) 325 MG TAB PO SCH (09:26)
[2017-06-17] MEDS: FLUOXETINE 10 MG CAP PO SCH (09:26)
[2017-06-17] MEDS: PREGABALIN 50 MG CAP PO SCH (09:26)
[2017-06-17] MEDS: LISINOPRIL 20 MG TAB PO SCH (09:27)
[2017-06-17] MEDS: AMLODIPINE 5 MG TAB PO SCH (09:27)
--- NOTE | 2017-06-17 13:17 | DS ---
Date/Time of Note Date/Time of Note DATE: 06/17/17 TIME: 13:12 Discharge Summary Admission/Discharge Info Admit Date/Time Jun 13, 2017 at 09:42 Discharge Date/Time 06/17/2017 Discharge Diagnosis s/p removal infected TKA, implantation of abx spacer Patient Condition: Fair Consults Dr. Jerson Moon, infectious disease Procedures Incision and drainage, left knee, removal of infected TKA, implantation of antibiotic impregnated spacer Hospital Course This is a 77-year-old male, who previously underwent a left total knee arthroplasty in 2013. 5 days prior to admission, he began developing left knee pain and swelling. His left knee was aspirated which was concerning for an infected left total knee arthroplasty. Culture results demonstrated concern for an infected prosthesis, and it was thought that he would need a two-stage exchange. On 06/13/2017, the patient was admitted and taken to the operating room where he underwent incision and drainage of his left knee, removal infected TKA, and implantation of antibiotic spacer. The patient tolerated the procedure well. He was taken to recovery room in stable condition. Pain was well-controlled on oral pain medication. He was started on aspirin and SCDs for DVT prophylaxis. He remained hemodynamically stable and neurovascularly intact throughout his hospital stay. He began physical therapy on postoperative day 1 and was ultimately deemed stable for transfer to [facility] on postoperative day 4. Prior to transfer, the incision was inspected and noted to be clean dry and intact. Dressing changes were done prior to patient being transferred to [facility]. DISCHARGE INSTRUCTIONS: The patient will be transferred to [facility] in stable condition. He is to resume a normal diet. He is toe-touch weightbearing on the left lower extremity. He will begin physical therapy at the facility. He is to continue with the medication noted, and resume all of his normal home medication. The patient is to call the office or go to emergency room for any concerns including increased redness, swelling, drainage , fever or any other concerns regarding the operation or site of incision. Home Meds Reported Medications Testosterone* (Androgel*) 1.62%-1.25gm Gel..ea., 1.25 GM TD DAILY, PACKET 06/13/17 Cholecalciferol* (Vitamin D3*) 1,000 Unit Tablet, 2000 UNIT PO DAILY, TAB 06/13/17 [place] Fruit (Saw [place]) 450 Mg Capsule, 900 MG PO DAILY, CAP 06/13/17 Fenofibrate Nanocrystallized* (Fenofibrate*) 145 Mg Tablet, 145 MG PO DAILY, TAB 06/13/17 Fluoxetine Hcl* (Fluoxetine Hcl*) 40 Mg Capsule, 30 MG PO DAILY, CAP 07/26/14 Amlodipine Besylate* (Amlodipine Besylate*) 10 Mg Tablet, 7.5 MG PO BID WITH MEALS, TAB 07/26/14 Lisinopril* (Lisinopril*) 40 Mg Tablet, 40 MG PO DAILY, TAB 07/26/14 Discontinued Reported Medications Ferrous Sulfate (Ferrous Sulfate) 220 Mg/5 Ml Solution, 220 MG PO DAILY, ML 07/27/14 Cholecalciferol* (Vitamin D*) 400 Unit Tablet, 1000 UNIT PO DAILY, TAB 07/27/14 Gemfibrozil* (Gemfibrozil*) 600 Mg Tablet, 600 MG PO BID, TAB 07/26/14 Follow-up Plan Follow up in the office on 06/24/2017 Primary Care Provider Leah Antunez Pending Labs Laboratory Tests Test 06/17/17 04:38 White Blood Count 11.910^3/ul (4.8-10.8) Red Blood Count 3.0610^6/ul (4.70-6.10) Hemoglobin 9.0g/dl (14.0-18.0) Hematocrit 27.6% (42.0-52.0) Mean Corpuscular Volume 90.2fl (82.0-101.0) Mean Corpuscular Hemoglobin 29.4pg (29.0-33.0) Mean Corpuscular Hemoglobin Concent 32.6g/dl (32.0-37.0) Red Cell Distribution Width 13.9% (11.5-14.5) Platelet Count 41389^3/UL (140-415) Mean Platelet Volume 10.3fl (7.4-10.4) Neutrophils % 66.0% (39.0-77.0) Lymphocytes % 14.2% (15.0-51.0) Monocytes % 10.2% (0.0-11.0) Eosinophils % 5.1% (0.0-7.0) Basophils % 0.2% (0.0-2.0) Nucleated Red Blood Cells % 0.2/100WBC (0.0-0.0) Neutrophils # 7.810^3/ul (1.6-7.5) Lymphocytes # 1.710^3/ul (0.8-2.9) Monocytes # 1.210^3/ul (0.3-0.9) Eosinophils # 0.610^3/ul (0.0-0.5) Basophils # 0.010^3/ul (0.0-0.1) Nucleated Red Blood Cells # 0.010^3/ul (0.0-0.0) Sodium Level 142mmol/L (135-144) Potassium Level 4.1mmol/L (3.5-5.1) Chloride Level 101mmol/L (97-110) Carbon Dioxide Level 27mmol/L (21-31) Anion Gap 18 (8-16) Blood Urea Nitrogen 17mg/dl (7-20) Creatinine 1.17mg/dl (0.61-1.24) Glucose Level 89mg/dl (70-220) Calcium Level 9.9mg/dl (8.4-10.2) JOSE D SMALL PA-C Jun 17, 2017 13:16
[2017-06-17] MEDS ORDERED: SOD CHLORIDE 0.9% 100 ML ONE (16:35)
--- NOTE | 2017-06-17 17:59 | RADRPT ---
PROCEDURE: XR Chest. CLINICAL INDICATION: Check PICC line position. TECHNIQUE: Single frontal view. COMPARISON: 06/13/2017. FINDINGS: There is a left arm PICC line with the tip in the lower superior vena cava. The lungs are clear. The heart size is normal. There is calcification in the aorta consistent with atherosclerosis. There is no pleural effusion. There is no pneumothorax. IMPRESSION: 1. Left arm PICC line tip in satisfactory position. 2. Atherosclerosis. 3. Otherwise normal chest radiograph. RPTAT: QQ .Audi Deleon MD, MD Date Time Electronically viewed and signed by .Audi Deleon MD, MD on 06/17/2017 17:59 .R/
--- NOTE | 2017-06-17 22:52 | RADRPT ---
PROCEDURE: Ultrasound guidance for placement of needle in left upper extremity vein. CLINICAL INDICATION: Venous access. TECHNIQUE: Limited sonography of the left upper extremity was performed. Ultrasound images were recorded and s tored in the patient's medical record. COMPARISON: None. FINDINGS: The ultrasound images demonstrate a patent left upper extremity vein. The PICC line was inserted by the PICC line nurse. IMPRESSION: 1. Ultrasound guidance for a needle placement in a left upper extremity vein. 2. The left upper extremity vein is patent. RPTAT: QQ .Audi Deleon MD, MD Date Time Electronically viewed and signed by .Audi Deleon MD, MD on 06/17/2017 22:52 .R/
== END 2017-06-17 19:55 | DRG 464 ==
LOC: E/R 08:25 → MS1 09:42
PROVIDERS: ADMIT Internal Medicine; ATTEND Internal Medicine
PROC: 0SHD08Z Insertion of Spacer into Left Knee Joint, Open Approach (ICD-10-PCS; 2017-06-13)
PROC: 0S9D0ZX Drainage of Left Knee Joint, Open Approach, Diagnostic (ICD-10-PCS; 2017-06-13)
PROC: 0SPD0JZ Removal of Synthetic Substitute from Left Knee Joint, Open Approach (ICD-10-PCS; principal; 2017-06-13 17:30)
PROC: 02HV33Z Insertion of Infusion Device into Superior Vena Cava, Percutaneous Approach (ICD-10-PCS; 2017-06-17)
PROC: B548ZZA Ultrasonography of Superior Vena Cava, Guidance (ICD-10-PCS; 2017-06-17)
DX: T84.54XA Infection and inflammatory reaction due to internal left knee prosthesis, initial encounter (principal); M00.062 Staphylococcal arthritis, left knee; N17.9 Acute kidney failure, unspecified; I48.2 Chronic atrial fibrillation; B95.61 Methicillin susceptible Staphylococcus aureus infection as the cause of diseases classified elsewhere; I10 Essential (primary) hypertension; E78.5 Hyperlipidemia, unspecified; N40.0 Benign prostatic hyperplasia without lower urinary tract symptoms; Z16.11 Resistance to penicillins; Z96.652 Presence of left artificial knee joint; Y84.8 Other medical procedures as the cause of abnormal reaction of the patient, or of later complication, without mention of misadventure at the time of the procedure; Y92.019 Unspecified place in single-family (private) house as the place of occurrence of the external cause; Z87.891 Personal history of nicotine dependence
CPT/HCPCS: 36415; 36569; 71010; 73560; 73562; 76937; 80048; 80053; 80202; 81001; 82728; 83540; 83605; 83735; 84100; 84300; 84443; 84484; 85014; 85018; 85025; 85610; 85651; 85730; 86140; 86850; 86900; 86901; 87040; 87070; 87075; 87086; 87102; 87116; 88300; 88304; 93005; 93306; 93970; 96365; 96366; 96367; 96375; 97110; 97116; 97162; 97165; 97530; C1776; J1940; C1713; C9290; J0171; J0690; J0692; J0735; J1100; J1170; J1885; J2250; J2270; J2274; J2405; J2710; J3010; J3370; J7030; J7042; J7120

== ENCOUNTER → 2017-06-26 | Outpatient (CLI) | payer MEDICARE, OTHER ==
[~2017-06-26] MED LIST changes: +ASPI325T32 PO; +CHOL100062 PO; -CHOL400T10 PO; -ETOMIDATE 20 MG INJ ONE; +FENO145T19 PO; -FERR220S15 PO; -GEMF600T60 PO; +HYDR-3605 PO; +PANT40TA4 PO; +PREG50CA PO; -PROPOFOL 1000 MG INJ ONE; +SAW450CA2 PO; +TEST1.25 TD; +TRAM50TA2 PO
--- NOTE | 2017-06-26 12:33 | PN ---
Date/Time of Note Date/Time of Note DATE: 06/26/17 TIME: 12:28 Assessment/Plan VTE Prophylaxis VTE Prophylaxis Intervention: ambulation, other Assessment/Plan Assessment/Plan ASSESSMENT: 10 days status post incision and drainage left knee, removal of infected left TKA, implantation of antibiotic impregnated spacer PLAN: The sebastian were removed today, and Steri-Strips were applied. His H&H is low, but given that he is asymptomatic, we will likely hold off on any intervention and watch it closely for now. The patient notes that he was on iron supplements prior to the surgery, but switched primary care doctors and discontinued them. We will repeat a CBC to check his H&H to ensure that the findings are accurate. He should discuss restarting the iron supplements with his primary care doctor. He is to continue physical therapy and remain toe- touch weightbearing for the time being. Additionally he is to continue antibiotics through his PICC line for 6 weeks from the date of surgery. He is also to continue aspirin twice daily for DVT prophylaxis. We will speak to Dr. Flores who is following him at [facility] regarding his H&H. We should see him back in 4 weeks for repeat evaluation. Subjective 24 Hr Interval Summary Free Text/Dictation Mr. Tirado presents today for his first postoperative evaluation of his left knee. He is now 10 days status post incision and drainage of left knee, removal of infected left TKA, implantation of antibiotic and placement spacer. He is currently at [facility] senior living facility. He is doing well overall. His hemoglobin and hematocrit are low today, but the patient is asymptomatic. He denies any chest pain, shortness of breath, headache, dizziness, lightheadedness. He is progressing well with physical therapy at [facility]. He has an articulating antibiotic impregnated spacer, and is able to bend his knee without discomfort. He denies any fevers or chills. He is currently on oxacillin through his PICC line. He presents today for his first postoperative evaluation on his left knee. Exam/Review of Systems Exam On exam today, he is alert and oriented 4, and in no acute distress. He is in a wheelchair upon arrival. His incision is clean, dry, and intact. [place] are in place. There is no erythema, warmth, pus, or drainage noted to his left knee. He does have some mild soft tissue swelling of the left lower extremity. He is able to bend his knee to approximately 100. Compartments are otherwise soft. Homans sign is negative. He is neurovascularly intact distally. JOSE D SMALL PA-C Jun 26, 2017 12:33
== END | disposition home or self-care (01) ==
LOC: HKI 10:35
PROVIDERS: ATTEND Orthopaedic Surgery
DX: Z47.1 Aftercare following joint replacement surgery (principal); Z96.652 Presence of left artificial knee joint; L76.82 Other postprocedural complications of skin and subcutaneous tissue; Y83.8 Other surgical procedures as the cause of abnormal reaction of the patient, or of later complication, without mention of misadventure at the time of the procedure; R22.42 Localized swelling, mass and lump, left lower limb
CPT/HCPCS: G0463

== ENCOUNTER → 2017-07-24 | Outpatient (CLI) | payer MEDICARE, OTHER ==
[~2017-07-24] MED LIST changes: +CHOL400T10 PO; +FERR220S15 PO; +GEMF600T60 PO
--- NOTE | 2017-07-24 16:28 | RADRPT ---
PROCEDURE: Left knee series CLINICAL INDICATION: Pain TECHNIQUE: AP and lateral views COMPARISON: 06/13/2017 left knee series FINDINGS: Interval removal of surgical drain and skin sebastian are noted status post recent surgery. Soft tissue swelling is noted in the suprapatellar and prepatellar region. The patient is status po st tricompartmental knee replacement with intact hardware and gross anatomic alignment present. No acute fractures are present. IMPRESSION: 1. Soft tissue swelling in the left suprapatellar and prepatellar regions status post interval jing julieta of surgical skin sebastian and drain. 2. Status post left tricompartmental knee replacement with intact hardware and gross anatomic align ment RPTAT: HDC .Meron Castro MD, Date Time Electronically viewed and signed by .Meron Castro MD, on 07/24/2017 16:28 .C/
== END | disposition home or self-care (01) ==
LOC: HKI 09:56
PROVIDERS: ATTEND Orthopaedic Surgery
DX: T84.54XD Infection and inflammatory reaction due to internal left knee prosthesis, subsequent encounter (principal); Z47.1 Aftercare following joint replacement surgery; Z96.642 Presence of left artificial hip joint